=== PATIENT | female | born 1985 | race American Indian/Alaskan Native ===

== ENCOUNTER 2017-04-10 09:40 | Emergency (ER) | payer BC ==
[2017-04-10 11:53] VITALS: BP 152/83
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
== END 2017-04-10 12:10 | disposition home or self-care (01) ==
LOC: VM.ED 09:40
DX: M25.511 Pain in right shoulder (principal); E11.9 Type 2 diabetes mellitus without complications; I10 Essential (primary) hypertension; Z90.49 Acquired absence of other specified parts of digestive tract; Z90.710 Acquired absence of both cervix and uterus; Z98.890 Other specified postprocedural states; Z79.84 Long term (current) use of oral hypoglycemic drugs; Z79.899 Other long term (current) drug therapy; Z88.5 Allergy status to narcotic agent; Z91.018 Allergy to other foods
CPT/HCPCS: 71020; 80305; 80349; 99285

== ENCOUNTER 2020-02-14 22:36 | Emergency (ER) | payer BC, OTHER ==
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
--- NOTE | 2020-02-15 07:37 | CT ---
[id number] CT/CT Head WO IV EXAM: NONCONTRAST HEAD CT INDICATION: Loss of consciousness. COMPARISON: December 28, 2016. DISCUSSION: Right posterior scalp hematoma. The ventricles and sulci are normal in size and configuration. The barber and white matter are normal in attenuation. No mass effect or midline shift. No acute hemorrhage or extra-axial fluid collection. No acute territorial infarct is identified. A limited look at the orbits and paranasal sinuses is unremarkable. IMPRESSION: 1. No evidence of acute intracranial trauma. 2. Right posterior scalp hematoma. Estrada Perry MD 02/15/20 0736 Thank you for allowing us to participate in the care of your patient.
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
== END 2020-02-15 00:12 | disposition home or self-care (01) ==
LOC: VM.ED 22:36
DX: S06.9X9A Unspecified intracranial injury with loss of consciousness of unspecified duration, initial encounter (principal); S00.03XA Contusion of scalp, initial encounter; M54.2 Cervicalgia; Z88.5 Allergy status to narcotic agent; Z91.018 Allergy to other foods; Z79.899 Other long term (current) drug therapy; W19.XXXA Unspecified fall, initial encounter; W22.8XXA Striking against or struck by other objects, initial encounter
CPT/HCPCS: 70450; 72125; 99284-25; 99284-GF

== ENCOUNTER 2020-04-09 10:03 | Emergency (ER) | payer OTHER ==
--- NOTE | 2020-04-09 10:21 | EDM.PDOC ---
ED HPI GENERAL MEDICAL PROBLEM - General Chief Complaint: Genitourinary Problem Stated Complaint: dysuria Time Seen by Provider: 04/09/20 10:10 Source of Information: Reports: Patient History Limitations: Reports: No Limitations - History of Present Illness INITIAL COMMENTS - FREE TEXT/NARRATIVE: Patient presents to ER with complaints of burning with urination, suprapubic cramping and perineal discomfort. States has persistent low abdominal cramping but is much more intense before and after she voids. Does have noted hematuria. No fevers. No nausea or vomiting with this. No back pain. She states it feels like her "bottom is swollen a little when I wipe". Mild itching to the labia. Has had bladder infections in the past but "nothing this intense" Onset: Gradual Duration: Day(s): Location: Reports: Abdomen Quality: Reports: Ache, Burning Severity: Moderate Associated Symptoms: Reports: Malaise. Denies: Confusion, Chest Pain, Cough, Fever/Chills, Loss of Appetite, Nausea/Vomiting, Shortness of Breath Perineal Area Pain Score (Numeric/FACES): 8 - Related Data Allergies Allergy/AdvReac Type Severity Reaction Status Date / Time codeine Allergy Rash Verified 04/09/20 10:26 blueberries Allergy Itching Uncoded 02/14/20 22:39 Home Meds: Home Meds Lisinopril 40 mg PO DAILY 04/10/17 [History] atorvaSTATin [Lipitor] 10 mg PO BEDTIME 04/09/20 [History] glyBURIDE/Metformin HCl [Glyburid-Metformin 1.25-250 mg] 1 each PO DAILY 04/09/20 [History] Past Medical History Psychiatric History: Reports: Anxiety, Depression - Past Surgical History HEENT Surgical History: Reports: Adenoidectomy, Tonsillectomy GI Surgical History: Reports: Cholecystectomy Female Surgical History: Reports: Hysterectomy Social & Family History - Tobacco Use Smoking Status *Q: Current Status Unknown ED ROS GENERAL - Review of Systems Review Of Systems: See Below Constitutional: Reports: Malaise. Denies: Fever, Chills, Weakness, Fatigue, Decreased Appetite HEENT: Reports: No Symptoms Respiratory: Denies: Shortness of Breath, Cough Cardiovascular: Denies: Chest Pain, Edema, Lightheadedness Endocrine: Denies: Fatigue GI/Abdominal: Reports: Abdominal Pain. Denies: Nausea, Vomiting : Reports: Dysuria, Frequency, Hematuria, Urgency. Denies: Flank Pain Musculoskeletal: Reports: No Symptoms Skin: Reports: No Symptoms Neurological: Reports: No Symptoms ED EXAM, RENAL/ - Physical Exam Exam: See Below Exam Limited By: No Limitations General Appearance: Alert, WD/WN, No Apparent Distress Head: Normocephalic Neck: Normal Inspection, Supple, Non-Tender Respiratory/Chest: No Respiratory Distress, Lungs Clear, Normal Breath Sounds Cardiovascular: Regular Rate, Rhythm GI/Abdominal: Normal Bowel Sounds, Soft, Tender (lower quadrants with palpation) Back Exam: No: CVA Tenderness (L), CVA Tenderness (R) Extremities: Normal Inspection, No Pedal Edema Neurological: Alert, Oriented Psychiatric: Tearful Skin Exam: Warm, Dry Course - Vital Signs Last Recorded V/S: Last Vital Signs Temp 97.9 F 04/09/20 10:10 Pulse 97 04/09/20 10:10 Resp 16 04/09/20 10:10 BP 143/104 H 04/09/20 10:10 Pulse Ox 98 04/09/20 10:10 - Orders/Labs/Meds Orders: Active Orders 24 hr Category Date Time Status CULTURE HERPES SIMPLEX VIRUS [MREF] Stat Lab 04/09/20 10:44 Ordered valACYclovir [Valtrex] Med 04/09/20 10:45 Ordered 1,000 mg PO BID Medication Orders Valacyclovir HCl (Valtrex) 1,000 mg PO BID TALA Labs: Laboratory Tests 04/09/20 Range/Units 10:20 Urine Color Light yellow (YELLOW) Urine Appearance Slightly cloudy H (CLEAR) Urine pH 5.5 (5.0-8.0) Ur Specific [place] 1.020 Urine Protein 30 H (NEGATIVE) mg/dL Urine Glucose (UA) >=1000 H (NEGATIVE) mg/dL Urine Ketones Trace H (NEGATIVE) mg/dL Urine Occult Blood Negative (NEGATIVE) Urine Nitrite Negative (NEGATIVE) Urine Bilirubin Negative (NEGATIVE) Urine Urobilinogen 0.2 (0.2) EU/dL Ur Leukocyte Esterase Negative (NEGATIVE) Urine RBC 0-5 (NOT SEEN) /HPF Urine WBC 0-5 (NOT SEEN) /HPF Ur Squamous Epith Cells Few H (NEGATIVE) /HPF Urine Bacteria Not seen (NEGATIVE) /HPF Urine Mucus Not seen (NEGATIVE) /LPF Meds: Medications Generic Name Dose Route Start Last Admin Trade Name Keira PRN Reason Stop Dose Admin Valacyclovir HCl 1,000 mg 04/09/20 10:45 Valtrex PO BID TALA - Re-Assessments/Exams Free Text/Narrative Re-Assessment/Exam: 04/09/20 10:45 UA is negative. Further pelvic exam done. Has multiple fleshy colored lesions to the labia bilaterally. Area to the crease near her clitoris has 3 open sores, very tender. Herpes culture collected. Much discussion held with patient in regards to this. Will proceed with treatment with Valtrex due to the discomfort she is having and suspicion of this until culture report is received. Will also give a Diflucan due to vaginal itching. Departure - Departure Time of Disposition: 10:50 Disposition: Home, Self-Care 01 Condition: Fair Clinical Impression: Candidiasis of female genitalia Herpes genitalia Qualifiers: Herpes simplex infection site: vulvovaginitis Qualified Code(s): A60.04 - Herpesviral vulvovaginitis - Discharge Information *PRESCRIPTION DRUG MONITORING PROGRAM REVIEWED*: No *COPY OF PRESCRIPTION DRUG MONITORING REPORT IN PATIENT CADEN: No Referrals: Shagufta Romero MD [Primary Care Provider] - Forms: ED Department Discharge Additional Instructions: 1. Keep perineum clean and dry. Try to avoid scratching to prevent further irritation 2. Start Valtrex one gram BID for 7 days 3. You will be notified of results of culture once received 4. If pain persists despite current treatment, follow up with Dr. Romero Sepsis Event Note (ED) - Focused Exam Vital Signs: Vital Signs Temp Pulse Resp BP Pulse Ox 04/09/20 10:10 97.9 F 97 16 143/104 H 98 - My Orders Last 24 Hours: My Active Orders 04/09/20 10:44 CULTURE HERPES SIMPLEX VIRUS [MREF] Stat 04/09/20 10:45 valACYclovir [Valtrex] 1,000 mg PO BID - Assessment/Plan Last 24 Hours: My Active Orders 04/09/20 10:44 CULTURE HERPES SIMPLEX VIRUS [MREF] Stat 04/09/20 10:45 valACYclovir [Valtrex] 1,000 mg PO BID
[2020-04-09 10:27] VITALS: BP 143/104; PULSE 97
[2020-04-09] MEDS ORDERED: valACYclovir 1,000 MG Tab PO SCH (10:45)
[2020-04-09] MEDS ORDERED: Fluconazole 100 MG Tab PO ONE (10:47)
== END 2020-04-09 11:10 | disposition home or self-care (01) ==
LOC: VM.ED 10:03
DX: B37.3 Candidiasis of vulva and vagina (principal); A60.04 Herpesviral vulvovaginitis; Z88.5 Allergy status to narcotic agent; Z91.018 Allergy to other foods; Z79.899 Other long term (current) drug therapy
CPT/HCPCS: 81001; 87529; 99283; 99284; A9270

== ENCOUNTER 2020-05-04 21:29 | Emergency (ER) | payer OTHER ==
[2020-05-04] MEDS ORDERED: Lidocaine 1% 30 ML SDV INJECT ONE (22:11)
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
[2020-05-04] MEDS ORDERED: Ibuprofen 200 MG Tab PO STA (23:17)
[2020-05-05 06:30] VITALS: BP 164/92; PULSE 100
--- NOTE | 2020-05-05 10:41 | CT ---
[id number] CT/CT Facial Bones WO IV Exam: CT Facial Bones WO IV Indication:ASSAULT FACE, LEFT ORBIT INJURY. Comparison: No prior imaging for comparison. Discussion: Mild amount of soft tissue edema/contusion in the left periorbital region. No underlying acute facial bone fracture. Tiny air-fluid levels in the maxillary sinuses, suggesting underlying changes of mild paranasal sinusitis. Paranasal sinuses are otherwise clear. Impression: Left periorbital soft tissue contusion. No underlying fracture. Ariel Rudolph MD 05/05/20 1040 Thank you for allowing us to participate in the care of your patient.
== END 2020-05-04 23:30 | disposition home or self-care (01) ==
LOC: VM.ED 21:29
DX: S01.81XA Laceration without foreign body of other part of head, initial encounter (principal); E78.00 Pure hypercholesterolemia, unspecified; I10 Essential (primary) hypertension; E11.9 Type 2 diabetes mellitus without complications; Z79.84 Long term (current) use of oral hypoglycemic drugs; Z79.899 Other long term (current) drug therapy; Z88.5 Allergy status to narcotic agent; Z91.018 Allergy to other foods; Y04.0XXA Assault by unarmed brawl or fight, initial encounter
CPT/HCPCS: 70486; 99284; 99284-25; A9270-GY

== ENCOUNTER 2020-06-27 13:43 | Emergency (ER) | payer OTHER ==
[2020-06-27] MEDS ORDERED: predniSONE 20 MG Tab PO ONE (14:29)
[2020-06-27] MEDS ORDERED: Albuterol/Ipratropium 3.0-0.5 MG/3 ML Neb Soln NEB ONE (14:29)
--- NOTE | 2020-06-27 14:54 | EDM.PDOC ---
ED HPI GENERAL MEDICAL PROBLEM - General Stated Complaint: sob Time Seen by Provider: 06/27/20 13:50 Source of Information: Reports: Patient History Limitations: Reports: No Limitations - History of Present Illness INITIAL COMMENTS - FREE TEXT/NARRATIVE: Patient comes emergency today from home with complaints of shortness of breath and cough. Over the past 3 to 4 days the patient has had a dry hacking nonproductive cough. She has had no fever or chills. No loss of taste or smell. No abdominal pain nausea or vomiting. No diarrhea. She has no pain in her chest. No weakness dizziness lightheadedness. No syncope. No palpitations. She is also had sinus congestion pressure and drainage. An itchy scratchy dry throat. No COVID exposure no COVID symptoms. - Related Data Allergies Allergy/AdvReac Type Severity Reaction Status Date / Time codeine Allergy Rash Verified 06/27/20 14:24 blueberries Allergy Itching Uncoded 06/27/20 14:24 Home Meds: Home Meds Lisinopril 40 mg PO DAILY 04/10/17 [History] atorvaSTATin [Lipitor] 10 mg PO BEDTIME 04/09/20 [History] glyBURIDE/Metformin HCl [Glyburid-Metformin 1.25-250 mg] 1 each PO DAILY 04/09/20 [History] Albuterol [Ventolin HFA] 2 puff INH Q4H PRN #1 puff 06/27/20 [Rx] predniSONE 40 mg PO DAILY #8 tab 06/27/20 [Rx] Past Medical History Cardiovascular History: Reports: High Cholesterol, Hypertension Psychiatric History: Reports: Anxiety, Depression Endocrine/Metabolic History: Reports: Diabetes, Type II - Past Surgical History HEENT Surgical History: Reports: Adenoidectomy, Tonsillectomy GI Surgical History: Reports: Cholecystectomy Female Surgical History: Reports: Hysterectomy ED ROS GENERAL - Review of Systems Review Of Systems: Comprehensive ROS is negative, except as noted in HPI. ED EXAM, GENERAL - Physical Exam Exam: See Below Exam Limited By: No Limitations General Appearance: Alert, WD/WN, No Apparent Distress (The patient is able to speak in full sentences and is clearly in no distress.) Eye Exam: Bilateral Eye: EOMI, PERRL Ears: Normal External Exam, Normal Canal, Hearing Grossly Normal, Normal TMs Nose: Normal Inspection, Normal Mucosa Throat/Mouth: Normal Inspection, Normal Lips, Normal Teeth, Normal Gums, Normal Oropharynx, Normal Voice, No Airway Compromise Head: Atraumatic, Normocephalic Neck: Normal Inspection, Supple, Non-Tender Respiratory/Chest: No Respiratory Distress, Lungs Clear, Normal Breath Sounds, No Accessory Muscle Use, Chest Non-Tender Cardiovascular: Normal Peripheral Pulses, Regular Rate, Rhythm GI/Abdominal: Normal Bowel Sounds, Soft, Non-Tender (Female) Exam: Deferred Rectal (Female) Exam: Deferred Back Exam: Normal Inspection, Full Range of Motion Extremities: Normal Inspection, Normal Range of Motion, No Pedal Edema, Normal Capillary Refill Neurological: Alert, Oriented, Normal Cognition, No Motor/Sensory Deficits Psychiatric: Normal Affect, Normal Mood Skin Exam: Warm, Dry, Intact, Normal Color, No Rash Course - Orders/Labs/Meds Orders: Active Orders 24 hr Category Date Time Status RT Aerosol Therapy [RC] ASDIRECTED Care 06/27/20 14:29 Active Labs: Laboratory Tests 06/27/20 Range/Units 14:02 SARS CoV-2 RNA Rapid JEAN-PAUL Negative (NEGATIVE) Meds: Medications Discontinued Medications Generic Name Dose Route Start Last Admin Trade Name Freq PRN Reason Stop Dose Admin Albuterol/Ipratropium 3 ml 06/27/20 14:29 06/27/20 14:34 Duoneb 3.0-0.5 Mg/3 Ml NEB 06/27/20 14:30 3 ml ONETIME ONE Administration Prednisone 40 mg 06/27/20 14:29 06/27/20 14:34 Prednisone PO 06/27/20 14:30 40 mg ONETIME ONE Administration - Re-Assessments/Exams Free Text/Narrative Re-Assessment/Exam: 06/27/20 15:09 PRednisone 40mg po Duo-neb nebulizer with resolution of symptoms and complaints of cough and SOB> CXR per radiology Negative examination of the chest. I reviewed the negative chest x-ray with the patient. Her COVID test is negative as well. We will send her home with albuterol MDI inhaler as well as prednisone for the treatment of bronchitis. Discharge directions as below are explained to the patient she was comfortable with this plan and her questions are answered. Departure - Departure Time of Disposition: 14:52 Disposition: Home, Self-Care 01 Clinical Impression: Bronchitis - Discharge Information Prescriptions: predniSONE 40 mg PO DAILY #8 tab Albuterol [Ventolin HFA] 2 puff INH Q4H PRN #1 puff PRN Reason: Shortness Of Breath Instructions: Upper Respiratory Infection, Adult, [id number] Additional Instructions: Increase fluids over the next few days. Take it easy and rest. Prednisone 40mg a day for the next 4 days. First dose given in the ED and RX sent to Albuterol inhaler with a spacer, 2 puffs every 4 hrs as needed for cough SOB. RX sent to the pharmacy. Return to the ED if new or worsening symptoms. Follow up with in the clinic in the next 4-6 days if not improving sooner if worse. - My Orders Last 24 Hours: My Active Orders 06/27/20 14:29 RT Aerosol Therapy [RC] ASDIRECTED - Assessment/Plan Last 24 Hours: My Active Orders 06/27/20 14:29 RT Aerosol Therapy [RC] ASDIRECTED
--- NOTE | 2020-06-27 15:01 | CR ---
[id number] RAD/RAD Chest PA And Lateral EXAM: RAD Chest PA And Lateral INDICATION: COUGH, SHORTNESS OF BREATH. COMPARISON: March 2017. DISCUSSION: Cardiomediastinal silhouette is normal in size and contour. Lungs are clear. No pleural effusion or pneumothorax. IMPRESSION: Negative examination of the chest. Ariel Rudolph MD 06/27/20 1186 Thank you for allowing us to participate in the care of your patient.
[2020-06-28 08:59] VITALS: BP 142/56; PULSE 98
== END 2020-06-27 15:17 | disposition home or self-care (01) ==
LOC: VM.ED 13:43
DX: J40 Bronchitis, not specified as acute or chronic (principal); I10 Essential (primary) hypertension; E78.00 Pure hypercholesterolemia, unspecified; E11.9 Type 2 diabetes mellitus without complications; F41.9 Anxiety disorder, unspecified; F32.9 Major depressive disorder, single episode, unspecified; Z90.49 Acquired absence of other specified parts of digestive tract; Z79.84 Long term (current) use of oral hypoglycemic drugs; Z90.710 Acquired absence of both cervix and uterus; Z20.828 Contact with and (suspected) exposure to other viral communicable diseases; Z88.5 Allergy status to narcotic agent; Z91.018 Allergy to other foods; Z79.899 Other long term (current) drug therapy
CPT/HCPCS: 71046; 94640; 99284; 99285-25; J7512; J7620-GY; U0002

== ENCOUNTER 2020-08-10 10:43 | Observation (INO) | payer OTHER ==
[2020-08-10] MEDS ORDERED: Ondansetron 4 MG/2 ML SDV IVPUSH ONE (10:53)
[2020-08-10] MEDS ORDERED: Albuterol/Ipratropium 3.0-0.5 MG/3 ML Neb Soln NEB ONE ×2 (10:53→10:54)
--- NOTE | 2020-08-10 11:04 | EDM.PDOC ---
ED HPI GENERAL MEDICAL PROBLEM - General Stated Complaint: SOB Time Seen by Provider: 08/10/20 10:51 Source of Information: Reports: Patient, EMS - History of Present Illness INITIAL COMMENTS - FREE TEXT/NARRATIVE: Sadia is a 35 y/o female who is brought to the ER by EMS for SOB. She called 911 today and was very SOB and could hardly speak. She reports that she was tested for COVID 2 days ago and has been home on quarantine. This AM she got extremely SOB and started to have nausea and vomiting. She has been trying to drink fluids, but hasn't had much of an appetite. She reprots her blood sugar this AM was 302. She has not been taking her meds the last few days since she has been ill. Generalized Pain Score (Numeric/FACES): 7 Headache Pain Score (Numeric/FACES): 7 - Related Data Allergies Allergy/AdvReac Type Severity Reaction Status Date / Time codeine Allergy Rash Verified 06/27/20 14:24 blueberries Allergy Itching Uncoded 06/27/20 14:24 Home Meds: Home Meds Lisinopril 40 mg PO DAILY 04/10/17 [History] atorvaSTATin [Lipitor] 10 mg PO BEDTIME 04/09/20 [History] glyBURIDE/Metformin HCl [Glyburid-Metformin 1.25-250 mg] 1 each PO DAILY 04/09/20 [History] Albuterol [Ventolin HFA] 2 puff INH Q4H PRN #1 puff 06/27/20 [Rx] Ibuprofen 600 mg PO Q6H PRN 08/10/20 [History] Past Medical History Cardiovascular History: Reports: High Cholesterol, Hypertension Psychiatric History: Reports: Anxiety, Depression Endocrine/Metabolic History: Reports: Diabetes, Type II - Past Surgical History HEENT Surgical History: Reports: Adenoidectomy, Tonsillectomy GI Surgical History: Reports: Cholecystectomy Female Surgical History: Reports: Hysterectomy Review of Systems - Review of Systems Review Of Systems: See Below Constitutional: Reports: No Symptoms Eyes: Reports: No Symptoms Ears: Reports: No Symptoms Nose: Reports: No Symptoms Mouth/Throat: Reports: No Symptoms Respiratory: Reports: Shortness of Breath, Wheezing, Cough Cardiovascular: Reports: Chest Pain GI/Abdominal: Reports: Decreased Appetite Genitourinary: Reports: No Symptoms Musculoskeletal: Reports: No Symptoms Skin: Reports: No Symptoms Neurological: Reports: No Symptoms Psychiatric: Reports: No Symptoms ED EXAM, GENERAL - Physical Exam Exam: See Below General Appearance: Alert, WD/WN (Adult female, trying to catch her breath and coughing profusely, quite anxious.) Eye Exam: Bilateral Eye: PERRL Ears: Normal Canal, Hearing Grossly Normal Nose: Normal Inspection, Normal Mucosa Throat/Mouth: Normal Teeth, No Airway Compromise Head: Atraumatic Neck: Normal Inspection, Supple Respiratory/Chest: Respiratory Distress, Other (Occasional wheezing, scattered coarseness) Cardiovascular: Normal Peripheral Pulses, Regular Rate, Rhythm GI/Abdominal: Normal Bowel Sounds, Soft, Non-Tender (Female) Exam: Deferred Rectal (Female) Exam: Deferred Back Exam: Normal Inspection Extremities: Normal Inspection, Normal Range of Motion, Normal Capillary Refill Neurological: Alert, Oriented, CN II-XII Intact Psychiatric: Normal Affect, Normal Mood Skin Exam: Warm, Dry, Intact, Normal Color Lymphatic: No Adenopathy #1 Interpretation EKG Date: 08/10/20 Time: 10:56 Rhythm: Other (Sinus Tachycardia) Rate (Beats/Min): 125 [place]: Normal P-Wave: Present QRS: Normal ST-T: Normal QT: Normal Comparison: NA - No Prior EKG Course - Vital Signs Text/Narrative:: 1051 The patient was seen on arrival to the ER. She was quite dyspneic. She was placed on 2 liters of oxygen and sats were in the mid 90s. Labs, EKG, and CXR ordered. She was given Dexamethasone 8mg IVP and a Duoneb. 1140 Breathing improved after the neb and steroids, however she was still tachycardic and her respiratory rate in the 30s. Sat remained >95% on 2 liters of oxygen per NC. Lorazepam 1mg IVP ordered to help patient relax. 1210 Patient resting now. Sats >95%, oxygen turned off. Still tachycardic. and slightly SOB. 1235 Maintaining her sats in the mid 90s on room air. Lactic Acid=2.5. CXR noted opacification of both lungs. Ceftriaxone 1gm IVP ordered since lactic acid elevated and pt hx of T2DM. Will plan to admit her to observation for serial lactic acid and scheduled nebs. Patient in agreement. Does have history of anxiety, which was exacerbated by coughing and SOB. Patient doing better than on arrival, but still want her watched closely. See admission orders. Last Recorded V/S: Last Vital Signs Temp 36.5 C 08/10/20 10:35 Pulse 113 H 08/10/20 12:03 Resp 32 H 08/10/20 12:03 BP 142/88 H 08/10/20 12:03 Pulse Ox 97 08/10/20 12:03 - Orders/Labs/Meds Orders: Active Orders 24 hr Category Date Time Status Patient Status [ADT] Routine ADT 08/10/20 13:16 Ordered EKG Documentation Completion [RC] STAT Care 08/10/20 10:52 Active CULTURE BLOOD [BC] Stat Lab 08/10/20 11:21 Results CULTURE BLOOD [BC] Stat Lab 08/10/20 11:26 Received Sodium Chloride 0.9% [Saline Flush] Med 08/10/20 10:52 Active 10 ml FLUSH ASDIRECTED PRN Blood Culture x2 Reflex Set [OM.PC] Stat Oth 08/10/20 10:53 Ordered Saline Lock Insert [OM.PC] Stat Oth 08/10/20 10:52 Ordered Medication Orders Sodium Chloride (Saline Flush) 10 ml FLUSH ASDIRECTED PRN PRN Reason: Keep Vein Open Labs: Laboratory Tests 08/10/20 08/10/20 08/10/20 Range/Units 10:55 11:21 11:21 WBC 9.7 (4.0-10.0) x10^3/uL RBC 5.74 H (4.00-5.50) x10^6/uL Hgb 15.9 (12.0-16.0) g/dL Hct 46.2 (33.0-47.0) % MCV 80.5 (78.0-93.0) fL MCH 27.7 (26.0-32.0) pg MCHC 34.4 (32.0-36.0) g/dL RDW Coeff of [place] 13.7 (10.0-15.0) % Plt Count 186 (130-400) x10^3/uL Add Manual Diff Yes Neutrophils % (Manual) 43 L (50-80) % Band Neutrophils % 4 (0-6) % Lymphocytes % (Manual) 15 L (25-50) % Reactive Lymphs % 28 H (0) % Monocytes % (Manual) 9 (2-11) % Eosinophils % (Manual) 1 (0-4) % Platelet Estimate Adequate PT 9.6 (9.5-12.3) SEC INR 0.9 L (2.0-3.5) D-Dimer, Quantitative (<=0.58) mg/LFEU Sodium (136-145) mmol/L Potassium (3.5-5.1) mmol/L Chloride (98-107) mmol/L Carbon Dioxide (21-32) mmol/L Anion Gap (10-20) mmol/L BUN (7-18) mg/dL Creatinine (0.55-1.02) mg/dL Est Cr Clr Drug Dosing mL/min Estimated GFR (MDRD) Glucose (74-106) mg/dL Lactic Acid (0.4-2.0) mmol/L Calcium (8.5-10.1) mg/dL Corrected Calcium (8.5-10.1) mg/dL Ferritin (8-252) ng/mL Total Bilirubin (0.2-1.0) mg/dL AST (15-37) U/L ALT (14-59) U/L Alkaline Phosphatase (46-116) U/L Troponin I (<=0.056) ng/mL Total Protein (6.4-8.2) g/dL Albumin (3.4-5.0) g/dL Globulin Albumin/Globulin Ratio Urine Color (YELLOW) Urine Appearance (CLEAR) Urine pH (5.0-8.0) Ur Specific [place] Urine Protein (NEGATIVE) mg/dL Urine Glucose (UA) (NEGATIVE) mg/dL Urine Ketones (NEGATIVE) mg/dL Urine Occult Blood (NEGATIVE) Urine Nitrite (NEGATIVE) Urine Bilirubin (NEGATIVE) Urine Urobilinogen (0.2) EU/dL Ur Leukocyte Esterase (NEGATIVE) U Hyaline Cast (Auto) Urine RBC (NOT SEEN) /HPF Urine WBC (NOT SEEN) /HPF Ur Squamous Epith Cells (NEGATIVE) /HPF Urine Bacteria (NEGATIVE) /HPF Urine Mucus (NEGATIVE) /LPF Urine Opiates Screen (NEGATIVE) Ur Buprenorphine Scrn (NEGATIVE) Ur Oxycodone Screen (NEGATIVE) Ur EDDP (Meth Metab) (NEGATIVE) Urine Methadone Screen (NEGATIVE) Ur Barbituates Screen (NEGATIVE) Ur Tricyclics Screen (NEGATIVE) Ur Phencyclidine Scrn (NEGATIVE) Ur Amphetamines Screen (NEGATIVE) U Methamphetamines Scrn (NEGATIVE) Urine MDMA Screen (NEGATIVE) U Benzodiazepines Scrn (NEGATIVE) Urine Cocaine Screen (NEGATIVE) U Marijuana (THC) Screen (NEGATIVE) Ethyl Alcohol (0-3) mg/dL SARS CoV-2 RNA Rapid JEAN-PAUL Positive H (NEGATIVE) 08/10/20 08/10/20 08/10/20 Range/Units 11:21 11:21 11:21 WBC (4.0-10.0) x10^3/uL RBC (4.00-5.50) x10^6/uL Hgb (12.0-16.0) g/dL Hct (33.0-47.0) % MCV (78.0-93.0) fL MCH (26.0-32.0) pg MCHC (32.0-36.0) g/dL RDW Coeff of [place] (10.0-15.0) % Plt Count (130-400) x10^3/uL Add Manual Diff Neutrophils % (Manual) (50-80) % Band Neutrophils % (0-6) % Lymphocytes % (Manual) (25-50) % Reactive Lymphs % (0) % Monocytes % (Manual) (2-11) % Eosinophils % (Manual) (0-4) % Platelet Estimate PT (9.5-12.3) SEC INR (2.0-3.5) D-Dimer, Quantitative 0.54 (<=0.58) mg/LFEU Sodium 135 L (136-145) mmol/L Potassium 3.5 (3.5-5.1) mmol/L Chloride 99 (98-107) mmol/L Carbon Dioxide 19 L (21-32) mmol/L Anion Gap 20.5 H (10-20) mmol/L BUN 12 (7-18) mg/dL Creatinine 0.8 (0.55-1.02) mg/dL Est Cr Clr Drug Dosing 98.07 mL/min Estimated GFR (MDRD) > 60 Glucose 326 H (74-106) mg/dL Lactic Acid 2.5 H* (0.4-2.0) mmol/L Calcium 8.4 L (8.5-10.1) mg/dL Corrected Calcium 8.80 (8.5-10.1) mg/dL Ferritin (8-252) ng/mL Total Bilirubin 1.1 H (0.2-1.0) mg/dL AST 17 (15-37) U/L ALT 24 (14-59) U/L Alkaline Phosphatase 89 (46-116) U/L Troponin I < 0.017 (<=0.056) ng/mL Total Protein 8.1 (6.4-8.2) g/dL Albumin 3.5 (3.4-5.0) g/dL Globulin 4.6 Albumin/Globulin Ratio 0.76 Urine Color (YELLOW) Urine Appearance (CLEAR) Urine pH (5.0-8.0) Ur Specific [place] Urine Protein (NEGATIVE) mg/dL Urine Glucose (UA) (NEGATIVE) mg/dL Urine Ketones (NEGATIVE) mg/dL Urine Occult Blood (NEGATIVE) Urine Nitrite (NEGATIVE) Urine Bilirubin (NEGATIVE) Urine Urobilinogen (0.2) EU/dL Ur Leukocyte Esterase (NEGATIVE) U Hyaline Cast (Auto) Urine RBC (NOT SEEN) /HPF Urine WBC (NOT SEEN) /HPF Ur Squamous Epith Cells (NEGATIVE) /HPF Urine Bacteria (NEGATIVE) /HPF Urine Mucus (NEGATIVE) /LPF Urine Opiates Screen (NEGATIVE) Ur Buprenorphine Scrn (NEGATIVE) Ur Oxycodone Screen (NEGATIVE) Ur EDDP (Meth Metab) (NEGATIVE) Urine Methadone Screen (NEGATIVE) Ur Barbituates Screen (NEGATIVE) Ur Tricyclics Screen (NEGATIVE) Ur Phencyclidine Scrn (NEGATIVE) Ur Amphetamines Screen (NEGATIVE) U Methamphetamines Scrn (NEGATIVE) Urine MDMA Screen (NEGATIVE) U Benzodiazepines Scrn (NEGATIVE) Urine Cocaine Screen (NEGATIVE) U Marijuana (THC) Screen (NEGATIVE) Ethyl Alcohol (0-3) mg/dL SARS CoV-2 RNA Rapid JEAN-PAUL (NEGATIVE) 08/10/20 08/10/20 08/10/20 Range/Units 11:21 11:21 11:38 WBC (4.0-10.0) x10^3/uL RBC (4.00-5.50) x10^6/uL Hgb (12.0-16.0) g/dL Hct (33.0-47.0) % MCV (78.0-93.0) fL MCH (26.0-32.0) pg MCHC (32.0-36.0) g/dL RDW Coeff of [place] (10.0-15.0) % Plt Count (130-400) x10^3/uL Add Manual Diff Neutrophils % (Manual) (50-80) % Band Neutrophils % (0-6) % Lymphocytes % (Manual) (25-50) % Reactive Lymphs % (0) % Monocytes % (Manual) (2-11) % Eosinophils % (Manual) (0-4) % Platelet Estimate PT (9.5-12.3) SEC INR (2.0-3.5) D-Dimer, Quantitative (<=0.58) mg/LFEU Sodium (136-145) mmol/L Potassium (3.5-5.1) mmol/L Chloride (98-107) mmol/L Carbon Dioxide (21-32) mmol/L Anion Gap (10-20) mmol/L BUN (7-18) mg/dL Creatinine (0.55-1.02) mg/dL Est Cr Clr Drug Dosing mL/min Estimated GFR (MDRD) Glucose (74-106) mg/dL Lactic Acid (0.4-2.0) mmol/L Calcium (8.5-10.1) mg/dL Corrected Calcium (8.5-10.1) mg/dL Ferritin 284 H (8-252) ng/mL Total Bilirubin (0.2-1.0) mg/dL AST (15-37) U/L ALT (14-59) U/L Alkaline Phosphatase (46-116) U/L Troponin I (<=0.056) ng/mL Total Protein (6.4-8.2) g/dL Albumin (3.4-5.0) g/dL Globulin Albumin/Globulin Ratio Urine Color Dark yellow H (YELLOW) Urine Appearance Slightly cloudy H (CLEAR) Urine pH 5.5 (5.0-8.0) Ur Specific [place] >=1.030 Urine Protein >=300 H (NEGATIVE) mg/dL Urine Glucose (UA) 500 H (NEGATIVE) mg/dL Urine Ketones 80 H (NEGATIVE) mg/dL Urine Occult Blood Trace-lysed H (NEGATIVE) Urine Nitrite Negative (NEGATIVE) Urine Bilirubin Small H (NEGATIVE) Urine Urobilinogen 0.2 (0.2) EU/dL Ur Leukocyte Esterase Negative (NEGATIVE) U Hyaline Cast (Auto) Moderate Urine RBC 5-10 H (NOT SEEN) /HPF Urine WBC 0-5 (NOT SEEN) /HPF Ur Squamous Epith Cells Moderate H (NEGATIVE) /HPF Urine Bacteria Not seen (NEGATIVE) /HPF Urine Mucus Not seen (NEGATIVE) /LPF Urine Opiates Screen (NEGATIVE) Ur Buprenorphine Scrn (NEGATIVE) Ur Oxycodone Screen (NEGATIVE) Ur EDDP (Meth Metab) (NEGATIVE) Urine Methadone Screen (NEGATIVE) Ur Barbituates Screen (NEGATIVE) Ur Tricyclics Screen (NEGATIVE) Ur Phencyclidine Scrn (NEGATIVE) Ur Amphetamines Screen (NEGATIVE) U Methamphetamines Scrn (NEGATIVE) Urine MDMA Screen (NEGATIVE) U Benzodiazepines Scrn (NEGATIVE) Urine Cocaine Screen (NEGATIVE) U Marijuana (THC) Screen (NEGATIVE) Ethyl Alcohol < 3 (0-3) mg/dL SARS CoV-2 RNA Rapid JEAN-PAUL (NEGATIVE) 08/10/20 Range/Units 11:38 WBC (4.0-10.0) x10^3/uL RBC (4.00-5.50) x10^6/uL Hgb (12.0-16.0) g/dL Hct (33.0-47.0) % MCV (78.0-93.0) fL MCH (26.0-32.0) pg MCHC (32.0-36.0) g/dL RDW Coeff of [place] (10.0-15.0) % Plt Count (130-400) x10^3/uL Add Manual Diff Neutrophils % (Manual) (50-80) % Band Neutrophils % (0-6) % Lymphocytes % (Manual) (25-50) % Reactive Lymphs % (0) % Monocytes % (Manual) (2-11) % Eosinophils % (Manual) (0-4) % Platelet Estimate PT (9.5-12.3) SEC INR (2.0-3.5) D-Dimer, Quantitative (<=0.58) mg/LFEU Sodium (136-145) mmol/L Potassium (3.5-5.1) mmol/L Chloride (98-107) mmol/L Carbon Dioxide (21-32) mmol/L Anion Gap (10-20) mmol/L BUN (7-18) mg/dL Creatinine (0.55-1.02) mg/dL Est Cr Clr Drug Dosing mL/min Estimated GFR (MDRD) Glucose (74-106) mg/dL Lactic Acid (0.4-2.0) mmol/L Calcium (8.5-10.1) mg/dL Corrected Calcium (8.5-10.1) mg/dL Ferritin (8-252) ng/mL Total Bilirubin (0.2-1.0) mg/dL AST (15-37) U/L ALT (14-59) U/L Alkaline Phosphatase (46-116) U/L Troponin I (<=0.056) ng/mL Total Protein (6.4-8.2) g/dL Albumin (3.4-5.0) g/dL Globulin Albumin/Globulin Ratio Urine Color (YELLOW) Urine Appearance (CLEAR) Urine pH (5.0-8.0) Ur Specific [place] Urine Protein (NEGATIVE) mg/dL Urine Glucose (UA) (NEGATIVE) mg/dL Urine Ketones (NEGATIVE) mg/dL Urine Occult Blood (NEGATIVE) Urine Nitrite (NEGATIVE) Urine Bilirubin (NEGATIVE) Urine Urobilinogen (0.2) EU/dL Ur Leukocyte Esterase (NEGATIVE) U Hyaline Cast (Auto) Urine RBC (NOT SEEN) /HPF Urine WBC (NOT SEEN) /HPF Ur Squamous Epith Cells (NEGATIVE) /HPF Urine Bacteria (NEGATIVE) /HPF Urine Mucus (NEGATIVE) /LPF Urine Opiates Screen Negative (NEGATIVE) Ur Buprenorphine Scrn Negative (NEGATIVE) Ur Oxycodone Screen Negative (NEGATIVE) Ur EDDP (Meth Metab) Negative (NEGATIVE) Urine Methadone Screen Negative (NEGATIVE) Ur Barbituates Screen Negative (NEGATIVE) Ur Tricyclics Screen Negative (NEGATIVE) Ur Phencyclidine Scrn Negative (NEGATIVE) Ur Amphetamines Screen Negative (NEGATIVE) U Methamphetamines Scrn Negative (NEGATIVE) Urine MDMA Screen Negative (NEGATIVE) U Benzodiazepines Scrn Negative (NEGATIVE) Urine Cocaine Screen Negative (NEGATIVE) U Marijuana (THC) Screen Negative (NEGATIVE) Ethyl Alcohol (0-3) mg/dL SARS CoV-2 RNA Rapid JEAN-PAUL (NEGATIVE) Meds: Medications Generic Name Dose Route Start Last Admin Trade Name Freq PRN Reason Stop Dose Admin Sodium Chloride 10 ml 08/10/20 10:52 Saline Flush FLUSH ASDIRECTED PRN Keep Vein Open Discontinued Medications Generic Name Dose Route Start Last Admin Trade Name Freq PRN Reason Stop Dose Admin Albuterol/Ipratropium 3 ml 08/10/20 10:53 Duoneb 3.0-0.5 Mg/3 Ml NEB 08/10/20 10:54 ONETIME ONE Albuterol/Ipratropium 3 ml 08/10/20 10:54 08/10/20 10:50 Duoneb 3.0-0.5 Mg/3 Ml NEB 08/10/20 10:55 3 ml ONETIME ONE Administration Ceftriaxone Sodium 1 gm 08/10/20 12:40 08/10/20 12:45 Rocephin IVPUSH 08/10/20 12:41 1 gm STAT ONE Administration Dexamethasone 8 mg 08/10/20 11:10 08/10/20 11:18 Dexamethasone IV 08/10/20 11:11 Not Given ONETIME ONE Dexamethasone Confirm 08/10/20 11:23 08/10/20 11:16 Decadron Administered 08/10/20 11:24 8 mg Dose Administration 8 mg .ROUTE .STK-MED ONE Lorazepam 1 mg 08/10/20 11:39 08/10/20 11:43 Ativan IVPUSH 08/10/20 11:40 1 mg STAT ONE Administration Lorazepam Confirm 08/10/20 11:50 08/10/20 12:37 Ativan Administered 08/10/20 11:51 Not Given Dose 2 mg .ROUTE .STK-MED ONE Ondansetron HCl 4 mg 08/10/20 10:53 08/10/20 11:18 Zofran IVPUSH 08/10/20 10:54 4 mg ONETIME ONE Administration Departure - Departure Time of Disposition: 13:14 Disposition: Refer to Observation Condition: Good Clinical Impression: COVID-19, Anxiety, Hx of diabetes mellitus, Elevated lactic acid level - Discharge Information Referrals: PCP,Not In Area [Primary Care Provider] - Sepsis Event Note (ED) - Focused Exam Vital Signs: Vital Signs Temp Pulse Resp BP Pulse Ox 08/10/20 12:03 113 H 32 H 142/88 H 97 08/10/20 11:20 125 H 34 H 145/92 H 93 L 08/10/20 10:35 36.5 C 136 H 36 H 158/80 H 89 L - My Orders Last 24 Hours: My Active Orders 08/10/20 10:52 EKG Documentation Completion [RC] STAT Sodium Chloride 0.9% [Saline Flush] 10 ml FLUSH ASDIRECTED PRN Saline Lock Insert [OM.PC] Stat 11/26/20 10:53 Blood Culture x2 Reflex Set [OM.PC] Stat 08/10/20 11:21 CULTURE BLOOD [BC] Stat 08/10/20 11:26 CULTURE BLOOD [BC] Stat 08/10/20 13:16 Patient Status [ADT] Routine - Assessment/Plan Admission H&P: Please use this note as an admission H&P Last 24 Hours: My Active Orders 08/10/20 10:52 EKG Documentation Completion [RC] STAT Sodium Chloride 0.9% [Saline Flush] 10 ml FLUSH ASDIRECTED PRN Saline Lock Insert [OM.PC] Stat 08/10/20 10:53 Blood Culture x2 Reflex Set [OM.PC] Stat 08/10/20 11:21 CULTURE BLOOD [BC] Stat 08/10/20 11:26 CULTURE BLOOD [BC] Stat 08/10/20 13:16 Patient Status [ADT] Routine Assessment:: 1)COVID+ 2)Elevated Lactic Acid R/O Sepsis 3)Anxiety 4)Hx T2DM Plan: -Will admit for observation -Repeat Lactic Acid about 1600 today -Schedule Susan
[2020-08-10] MEDS ORDERED: Dexamethasone 4 MG/ML 5 ML MDV IV ONE (11:10)
[2020-08-10] MEDS ORDERED: Dexamethasone 4 MG/ML SDV ONE (11:23)
--- NOTE | 2020-08-10 11:36 | CR ---
[id number] RAD/RAD Chest PA or AP 1V EXAM: RAD Chest PA or AP 1V INDICATION: SHORTNESS OF BREATH. COMPARISON: June 27, 2020. DISCUSSION: Cardiomediastinal silhouette is normal in size and contour. Scattered areas of nonmasslike parenchymal opacification both lungs. Findings are most consistent with pneumonia, including sequela of Covid 19. Findings were not seen previously. Low lung volumes result in bibasal vascular crowding. No pneumothorax or pleural effusion. IMPRESSION: As above. Ariel Rudolph MD 08/10/20 1135 Thank you for allowing us to participate in the care of your patient.
[2020-08-10] MEDS ORDERED: LORazepam 2 MG/ML SDV IVPUSH ONE (11:39)
[2020-08-10] MEDS ORDERED: LORazepam 2 MG/ML SDV ONE (11:50)
[2020-08-10 11:58] LABS: BUPRENORPHINE,URINE NEGATIVE (NEGATIVE); MARIJUANA,URINE NEGATIVE (NEGATIVE); METHYLENEDIOXYMETHAMP,UR NEGATIVE (NEGATIVE); PHENCYCLIDINE,URINE NEGATIVE (NEGATIVE)
[2020-08-10 12:07] LABS: CHLORIDE,CL 99 mmol/L (98-107); SODIUM,NA 135 mmol/L (136-145)
[2020-08-10 12:11] LABS: ANION GAP 20.5 mmol/L (10-20)
[2020-08-10] MEDS ORDERED: cefTRIAXone 1 GM Vial IVPUSH ONE (12:40)
[2020-08-10] MEDS ORDERED: Ondansetron 4 MG Tab.DIS PO PRN (13:25)
[2020-08-10] MEDS ORDERED: Ibuprofen 200 MG Tab PO PRN (13:25)
[2020-08-10] MEDS ORDERED: Flumazenil 0.1 MG/ML 5 ML MDV IVPUSH PRN (13:33)
[2020-08-10] MEDS ORDERED: glyBURIDE 5 MG Tab PO SCH (13:45)
[2020-08-10] MEDS: Lisinopril 20 MG Tab PO SCH (13:55)
[2020-08-10] MEDS: Azithromycin 250 MG Tab PO SCH (13:55)
[2020-08-10] MEDS: Acetaminophen 325 MG Tab PO PRN (14:00)
[2020-08-10] MEDS: Albuterol/Ipratropium 3.0-0.5 MG/3 ML Neb Soln NEB PRN ×2 (14:00→20:39)
[2020-08-10] MEDS: glyBURIDE 5 MG Tab PO SCH (15:01)
[2020-08-10] MEDS: metFORMIN 500 MG Tab PO SCH (15:03)
[2020-08-10] MEDS ORDERED: Glucagon,Human Recombinant 1 MG Vial IM PRN (18:01)
[2020-08-10] MEDS ORDERED: 50% Dextrose in Water 50 ML Syringe IV PRN (18:01)
[2020-08-10] MEDS ORDERED: Sodium Chloride 0.9% 500 ML IV ONE (18:07)
[2020-08-10] MEDS: Insulin Regular, Human 100 Units/ML 3 ML Vial SUBCUT SCH (18:23)
[2020-08-10] MEDS: atorvaSTATin 10 MG Tab PO SCH (19:40)
[2020-08-10] MEDS: Sodium Chloride 0.9% 1,000 ML IV SCH (19:41)
[2020-08-10 19:48] LABS: ANION GAP 17.1 mmol/L (10-20)
[2020-08-10] MEDS ORDERED: Insulin Regular, Human 100 Units/ML 3 ML Vial SUBCUT STA (20:22)
[2020-08-10] MEDS: Ondansetron 4 MG/2 ML SDV IV PRN (20:40)
[2020-08-11] MEDS: Ondansetron 4 MG/2 ML SDV IV PRN (01:59)
[2020-08-11] MEDS: Sodium Chloride 0.9% 10 ML Syringe FLUSH PRN ×2 (02:03→03:15)
[2020-08-11] MEDS: Acetaminophen 325 MG Tab PO PRN ×2 (02:04→22:54)
[2020-08-11] MEDS: Albuterol/Ipratropium 3.0-0.5 MG/3 ML Neb Soln NEB PRN ×3 (02:05→22:30)
[2020-08-11] MEDS: LORazepam 2 MG/ML SDV IVPUSH PRN ×2 (03:07→22:55)
[2020-08-11] MEDS: Sodium Chloride 0.9% 1,000 ML IV SCH ×3 (05:00→21:37)
[2020-08-11 07:49] LABS: CHLORIDE,CL 105 mmol/L (98-107); SODIUM,NA 139 mmol/L (136-145)
[2020-08-11 07:54] LABS: ANION GAP 15.7 mmol/L (10-20)
[2020-08-11] MEDS: metFORMIN 500 MG Tab PO SCH (07:55)
[2020-08-11] MEDS: Azithromycin 250 MG Tab PO SCH (07:55)
[2020-08-11] MEDS: glyBURIDE 5 MG Tab PO SCH (07:56)
[2020-08-11] MEDS: Lisinopril 20 MG Tab PO SCH (07:56)
[2020-08-11] MEDS: Insulin Regular, Human 100 Units/ML 3 ML Vial SUBCUT SCH ×3 (07:59→17:55)
[2020-08-11] MEDS ORDERED: metFORMIN 500 MG Tab PO SCH (08:00)
[2020-08-11] MEDS ORDERED: Benzonatate 100 MG Cap PO PRN (09:00)
--- NOTE | 2020-08-11 09:04 | PCM.PN ---
- General Info Date of Service: 08/11/20 Subjective Update: Pt. is much improved today. She is off oxygen. Coughing has continued which causes the patient to be anxious. She states that nebulizer treatments have been helping. Pt. has been eating and drinking. She is still on NS at 125ml/hr. She is able to get up to the toilet on her own. Blood sugar has been trending downward. She was started back on her oral medication for diabetes. Functional Status: Reports: Pain Controlled - Review of Systems General: Reports: No Symptoms HEENT: Reports: No Symptoms Pulmonary: Reports: Cough Cardiovascular: Reports: No Symptoms Gastrointestinal: Reports: No Symptoms Genitourinary: Reports: No Symptoms Musculoskeletal: Reports: No Symptoms Skin: Reports: No Symptoms Neurological: Reports: No Symptoms Psychiatric: Reports: No Symptoms - Patient Data Vitals - Most Recent: Last Vital Signs Temp 36.6 C 08/11/20 05:48 Pulse 84 08/11/20 05:48 Resp 18 08/11/20 05:48 BP 137/68 08/11/20 07:56 Pulse Ox 94 L 08/11/20 05:55 Weight - Most Recent: 93.894 kg I&O - Last 24 Hours: Intake & Output 08/10/20 08/11/20 08/11/20 22:59 06:59 14:59 Intake Total 600 2500 180 Output Total 300 1600 Balance 300 900 180 Lab Results Last 24 Hours: Laboratory Results - last 24 hr 08/10/20 08/10/20 08/10/20 Range/Units 10:55 11:21 11:21 WBC 9.7 (4.0-10.0) x10^3/uL RBC 5.74 H (4.00-5.50) x10^6/uL Hgb 15.9 (12.0-16.0) g/dL Hct 46.2 (33.0-47.0) % MCV 80.5 (78.0-93.0) fL MCH 27.7 (26.0-32.0) pg MCHC 34.4 (32.0-36.0) g/dL RDW Coeff of [place] 13.7 (10.0-15.0) % Plt Count 186 (130-400) x10^3/uL Add Manual Diff Yes Neutrophils % (Manual) 43 L (50-80) % Band Neutrophils % 4 (0-6) % Lymphocytes % (Manual) 15 L (25-50) % Reactive Lymphs % 28 H (0) % Monocytes % (Manual) 9 (2-11) % Eosinophils % (Manual) 1 (0-4) % Platelet Estimate Adequate PT 9.6 (9.5-12.3) SEC INR 0.9 L (2.0-3.5) D-Dimer, Quantitative (<=0.58) mg/LFEU POC VBG pH (7.32-7.43) pH POC VBG pCO2 (41-51) mmHg POC VBG pO2 mmHg POC VBG HCO3 (22-29) mmol/L POC Venous O2 Sat % VBG Base Excess (-(2)-3) mmol/L POC FiO2 Sodium (136-145) mmol/L Potassium (3.5-5.1) mmol/L Chloride (98-107) mmol/L Carbon Dioxide (21-32) mmol/L POC Venous Total CO2 (23-30) mmol/L Anion Gap (10-20) mmol/L BUN (7-18) mg/dL Creatinine (0.55-1.02) mg/dL Est Cr Clr Drug Dosing mL/min Estimated GFR (MDRD) Glucose (74-106) mg/dL POC Glucose (74-106) mg/dL Lactic Acid (0.4-2.0) mmol/L Calcium (8.5-10.1) mg/dL Corrected Calcium (8.5-10.1) mg/dL Ferritin (8-252) ng/mL Total Bilirubin (0.2-1.0) mg/dL AST (15-37) U/L ALT (14-59) U/L Alkaline Phosphatase (46-116) U/L Troponin I (<=0.056) ng/mL Total Protein (6.4-8.2) g/dL Albumin (3.4-5.0) g/dL Globulin Albumin/Globulin Ratio Urine Color (YELLOW) Urine Appearance (CLEAR) Urine pH (5.0-8.0) Ur Specific Spring Urine Protein (NEGATIVE) mg/dL Urine Glucose (UA) (NEGATIVE) mg/dL Urine Ketones (NEGATIVE) mg/dL Urine Occult Blood (NEGATIVE) Urine Nitrite (NEGATIVE) Urine Bilirubin (NEGATIVE) Urine Urobilinogen (0.2) EU/dL Ur Leukocyte Esterase (NEGATIVE) U Hyaline Cast (Auto) Urine RBC (NOT SEEN) /HPF Urine WBC (NOT SEEN) /HPF Ur Squamous Epith Cells (NEGATIVE) /HPF Urine Bacteria (NEGATIVE) /HPF Urine Mucus (NEGATIVE) /LPF Urine Opiates Screen (NEGATIVE) Ur Buprenorphine Scrn (NEGATIVE) Ur Oxycodone Screen (NEGATIVE) Ur EDDP (Meth Metab) (NEGATIVE) Urine Methadone Screen (NEGATIVE) Ur Barbituates Screen (NEGATIVE) Ur Tricyclics Screen (NEGATIVE) Ur Phencyclidine Scrn (NEGATIVE) Ur Amphetamines Screen (NEGATIVE) U Methamphetamines Scrn (NEGATIVE) Urine MDMA Screen (NEGATIVE) U Benzodiazepines Scrn (NEGATIVE) Urine Cocaine Screen (NEGATIVE) U Marijuana (THC) Screen (NEGATIVE) Ethyl Alcohol (0-3) mg/dL SARS CoV-2 RNA Rapid JEAN-PAUL Positive H (NEGATIVE) 08/10/20 08/10/20 08/10/20 Range/Units 11:21 11:21 11:21 WBC (4.0-10.0) x10^3/uL RBC (4.00-5.50) x10^6/uL Hgb (12.0-16.0) g/dL Hct (33.0-47.0) % MCV (78.0-93.0) fL MCH (26.0-32.0) pg MCHC (32.0-36.0) g/dL RDW Coeff of [place] (10.0-15.0) % Plt Count (130-400) x10^3/uL Add Manual Diff Neutrophils % (Manual) (50-80) % Band Neutrophils % (0-6) % Lymphocytes % (Manual) (25-50) % Reactive Lymphs % (0) % Monocytes % (Manual) (2-11) % Eosinophils % (Manual) (0-4) % Platelet Estimate PT (9.5-12.3) SEC INR (2.0-3.5) D-Dimer, Quantitative 0.54 (<=0.58) mg/LFEU POC VBG pH (7.32-7.43) pH POC VBG pCO2 (41-51) mmHg POC VBG pO2 mmHg POC VBG HCO3 (22-29) mmol/L POC Venous O2 Sat % VBG Base Excess (-(2)-3) mmol/L POC FiO2 Sodium 135 L (136-145) mmol/L Potassium 3.5 (3.5-5.1) mmol/L Chloride 99 (98-107) mmol/L Carbon Dioxide 19 L (21-32) mmol/L POC Venous Total CO2 (23-30) mmol/L Anion Gap 20.5 H (10-20) mmol/L BUN 12 (7-18) mg/dL Creatinine 0.8 (0.55-1.02) mg/dL Est Cr Clr Drug Dosing 98.07 mL/min Estimated GFR (MDRD) > 60 Glucose 326 H (74-106) mg/dL POC Glucose (74-106) mg/dL Lactic Acid 2.5 H* (0.4-2.0) mmol/L Calcium 8.4 L (8.5-10.1) mg/dL Corrected Calcium 8.80 (8.5-10.1) mg/dL Ferritin (8-252) ng/mL Total Bilirubin 1.1 H (0.2-1.0) mg/dL AST 17 (15-37) U/L ALT 24 (14-59) U/L Alkaline Phosphatase 89 (46-116) U/L Troponin I < 0.017 (<=0.056) ng/mL Total Protein 8.1 (6.4-8.2) g/dL Albumin 3.5 (3.4-5.0) g/dL Globulin 4.6 Albumin/Globulin Ratio 0.76 Urine Color (YELLOW) Urine Appearance (CLEAR) Urine pH (5.0-8.0) Ur Specific Spring Urine Protein (NEGATIVE) mg/dL Urine Glucose (UA) (NEGATIVE) mg/dL Urine Ketones (NEGATIVE) mg/dL Urine Occult Blood (NEGATIVE) Urine Nitrite (NEGATIVE) Urine Bilirubin (NEGATIVE) Urine Urobilinogen (0.2) EU/dL Ur Leukocyte Esterase (NEGATIVE) U Hyaline Cast (Auto) Urine RBC (NOT SEEN) /HPF Urine WBC (NOT SEEN) /HPF Ur Squamous Epith Cells (NEGATIVE) /HPF Urine Bacteria (NEGATIVE) /HPF Urine Mucus (NEGATIVE) /LPF Urine Opiates Screen (NEGATIVE) Ur Buprenorphine Scrn (NEGATIVE) Ur Oxycodone Screen (NEGATIVE) Ur EDDP (Meth Metab) (NEGATIVE) Urine Methadone Screen (NEGATIVE) Ur Barbituates Screen (NEGATIVE) Ur Tricyclics Screen (NEGATIVE) Ur Phencyclidine Scrn (NEGATIVE) Ur Amphetamines Screen (NEGATIVE) U Methamphetamines Scrn (NEGATIVE) Urine MDMA Screen (NEGATIVE) U Benzodiazepines Scrn (NEGATIVE) Urine Cocaine Screen (NEGATIVE) U Marijuana (THC) Screen (NEGATIVE) Ethyl Alcohol (0-3) mg/dL SARS CoV-2 RNA Rapid JEAN-PAUL (NEGATIVE) 08/10/20 08/10/20 08/10/20 Range/Units 11:21 11:21 11:38 WBC (4.0-10.0) x10^3/uL RBC (4.00-5.50) x10^6/uL Hgb (12.0-16.0) g/dL Hct (33.0-47.0) % MCV (78.0-93.0) fL MCH (26.0-32.0) pg MCHC (32.0-36.0) g/dL RDW Coeff of [place] (10.0-15.0) % Plt Count (130-400) x10^3/uL Add Manual Diff Neutrophils % (Manual) (50-80) % Band Neutrophils % (0-6) % Lymphocytes % (Manual) (25-50) % Reactive Lymphs % (0) % Monocytes % (Manual) (2-11) % Eosinophils % (Manual) (0-4) % Platelet Estimate PT (9.5-12.3) SEC INR (2.0-3.5) D-Dimer, Quantitative (<=0.58) mg/LFEU POC VBG pH (7.32-7.43) pH POC VBG pCO2 (41-51) mmHg POC VBG pO2 mmHg POC VBG HCO3 (22-29) mmol/L POC Venous O2 Sat % VBG Base Excess (-(2)-3) mmol/L POC FiO2 Sodium (136-145) mmol/L Potassium (3.5-5.1) mmol/L Chloride (98-107) mmol/L Carbon Dioxide (21-32) mmol/L POC Venous Total CO2 (23-30) mmol/L Anion Gap (10-20) mmol/L BUN (7-18) mg/dL Creatinine (0.55-1.02) mg/dL Est Cr Clr Drug Dosing mL/min Estimated GFR (MDRD) Glucose (74-106) mg/dL POC Glucose (74-106) mg/dL Lactic Acid (0.4-2.0) mmol/L Calcium (8.5-10.1) mg/dL Corrected Calcium (8.5-10.1) mg/dL Ferritin 284 H (8-252) ng/mL Total Bilirubin (0.2-1.0) mg/dL AST (15-37) U/L ALT (14-59) U/L Alkaline Phosphatase (46-116) U/L Troponin I (<=0.056) ng/mL Total Protein (6.4-8.2) g/dL Albumin (3.4-5.0) g/dL Globulin Albumin/Globulin Ratio Urine Color Dark yellow H (YELLOW) Urine Appearance Slightly cloudy H (CLEAR) Urine pH 5.5 (5.0-8.0) Ur Specific Spring >=1.030 Urine Protein >=300 H (NEGATIVE) mg/dL Urine Glucose (UA) 500 H (NEGATIVE) mg/dL Urine Ketones 80 H (NEGATIVE) mg/dL Urine Occult Blood Trace-lysed H (NEGATIVE) Urine Nitrite Negative (NEGATIVE) Urine Bilirubin Small H (NEGATIVE) Urine Urobilinogen 0.2 (0.2) EU/dL Ur Leukocyte Esterase Negative (NEGATIVE) U Hyaline Cast (Auto) Moderate Urine RBC 5-10 H (NOT SEEN) /HPF Urine WBC 0-5 (NOT SEEN) /HPF Ur Squamous Epith Cells Moderate H (NEGATIVE) /HPF Urine Bacteria Not seen (NEGATIVE) /HPF Urine Mucus Not seen (NEGATIVE) /LPF Urine Opiates Screen (NEGATIVE) Ur Buprenorphine Scrn (NEGATIVE) Ur Oxycodone Screen (NEGATIVE) Ur EDDP (Meth Metab) (NEGATIVE) Urine Methadone Screen (NEGATIVE) Ur Barbituates Screen (NEGATIVE) Ur Tricyclics Screen (NEGATIVE) Ur Phencyclidine Scrn (NEGATIVE) Ur Amphetamines Screen (NEGATIVE) U Methamphetamines Scrn (NEGATIVE) Urine MDMA Screen (NEGATIVE) U Benzodiazepines Scrn (NEGATIVE) Urine Cocaine Screen (NEGATIVE) U Marijuana (THC) Screen (NEGATIVE) Ethyl Alcohol < 3 (0-3) mg/dL SARS CoV-2 RNA Rapid JEAN-PAUL (NEGATIVE) 08/10/20 08/10/20 08/10/20 Range/Units 11:38 15:07 16:15 WBC (4.0-10.0) x10^3/uL RBC (4.00-5.50) x10^6/uL Hgb (12.0-16.0) g/dL Hct (33.0-47.0) % MCV (78.0-93.0) fL MCH (26.0-32.0) pg MCHC (32.0-36.0) g/dL RDW Coeff of [place] (10.0-15.0) % Plt Count (130-400) x10^3/uL Add Manual Diff Neutrophils % (Manual) (50-80) % Band Neutrophils % (0-6) % Lymphocytes % (Manual) (25-50) % Reactive Lymphs % (0) % Monocytes % (Manual) (2-11) % Eosinophils % (Manual) (0-4) % Platelet Estimate PT (9.5-12.3) SEC INR (2.0-3.5) D-Dimer, Quantitative (<=0.58) mg/LFEU POC VBG pH (7.32-7.43) pH POC VBG pCO2 (41-51) mmHg POC VBG pO2 mmHg POC VBG HCO3 (22-29) mmol/L POC Venous O2 Sat % VBG Base Excess (-(2)-3) mmol/L POC FiO2 Sodium (136-145) mmol/L Potassium (3.5-5.1) mmol/L Chloride (98-107) mmol/L Carbon Dioxide (21-32) mmol/L POC Venous Total CO2 (23-30) mmol/L Anion Gap (10-20) mmol/L BUN (7-18) mg/dL Creatinine (0.55-1.02) mg/dL Est Cr Clr Drug Dosing mL/min Estimated GFR (MDRD) Glucose (74-106) mg/dL POC Glucose 385 H (74-106) mg/dL Lactic Acid 2.0 (0.4-2.0) mmol/L Calcium (8.5-10.1) mg/dL Corrected Calcium (8.5-10.1) mg/dL Ferritin (8-252) ng/mL Total Bilirubin (0.2-1.0) mg/dL AST (15-37) U/L ALT (14-59) U/L Alkaline Phosphatase (46-116) U/L Troponin I (<=0.056) ng/mL Total Protein (6.4-8.2) g/dL Albumin (3.4-5.0) g/dL Globulin Albumin/Globulin Ratio Urine Color (YELLOW) Urine Appearance (CLEAR) Urine pH (5.0-8.0) Ur Specific Spring Urine Protein (NEGATIVE) mg/dL Urine Glucose (UA) (NEGATIVE) mg/dL Urine Ketones (NEGATIVE) mg/dL Urine Occult Blood (NEGATIVE) Urine Nitrite (NEGATIVE) Urine Bilirubin (NEGATIVE) Urine Urobilinogen (0.2) EU/dL Ur Leukocyte Esterase (NEGATIVE) U Hyaline Cast (Auto) Urine RBC (NOT SEEN) /HPF Urine WBC (NOT SEEN) /HPF Ur Squamous Epith Cells (NEGATIVE) /HPF Urine Bacteria (NEGATIVE) /HPF Urine Mucus (NEGATIVE) /LPF Urine Opiates Screen Negative (NEGATIVE) Ur Buprenorphine Scrn Negative (NEGATIVE) Ur Oxycodone Screen Negative (NEGATIVE) Ur EDDP (Meth Metab) Negative (NEGATIVE) Urine Methadone Screen Negative (NEGATIVE) Ur Barbituates Screen Negative (NEGATIVE) Ur Tricyclics Screen Negative (NEGATIVE) Ur Phencyclidine Scrn Negative (NEGATIVE) Ur Amphetamines Screen Negative (NEGATIVE) U Methamphetamines Scrn Negative (NEGATIVE) Urine MDMA Screen Negative (NEGATIVE) U Benzodiazepines Scrn Negative (NEGATIVE) Urine Cocaine Screen Negative (NEGATIVE) U Marijuana (THC) Screen Negative (NEGATIVE) Ethyl Alcohol (0-3) mg/dL SARS CoV-2 RNA Rapid JEAN-PAUL (NEGATIVE) 08/10/20 08/10/20 08/10/20 Range/Units 17:52 17:55 18:47 WBC (4.0-10.0) x10^3/uL RBC (4.00-5.50) x10^6/uL Hgb (12.0-16.0) g/dL Hct (33.0-47.0) % MCV (78.0-93.0) fL MCH (26.0-32.0) pg MCHC (32.0-36.0) g/dL RDW Coeff of [place] (10.0-15.0) % Plt Count (130-400) x10^3/uL Add Manual Diff Neutrophils % (Manual) (50-80) % Band Neutrophils % (0-6) % Lymphocytes % (Manual) (25-50) % Reactive Lymphs % (0) % Monocytes % (Manual) (2-11) % Eosinophils % (Manual) (0-4) % Platelet Estimate PT (9.5-12.3) SEC INR (2.0-3.5) D-Dimer, Quantitative (<=0.58) mg/LFEU POC VBG pH (7.32-7.43) pH POC VBG pCO2 (41-51) mmHg POC VBG pO2 mmHg POC VBG HCO3 (22-29) mmol/L POC Venous O2 Sat % VBG Base Excess (-(2)-3) mmol/L POC FiO2 Sodium (136-145) mmol/L Potassium (3.5-5.1) mmol/L Chloride (98-107) mmol/L Carbon Dioxide (21-32) mmol/L POC Venous Total CO2 (23-30) mmol/L Anion Gap (10-20) mmol/L BUN (7-18) mg/dL Creatinine (0.55-1.02) mg/dL Est Cr Clr Drug Dosing mL/min Estimated GFR (MDRD) Glucose (74-106) mg/dL POC Glucose > 500 H* > 500 H* > 500 H* (74-106) mg/dL Lactic Acid (0.4-2.0) mmol/L Calcium (8.5-10.1) mg/dL Corrected Calcium (8.5-10.1) mg/dL Ferritin (8-252) ng/mL Total Bilirubin (0.2-1.0) mg/dL AST (15-37) U/L ALT (14-59) U/L Alkaline Phosphatase (46-116) U/L Troponin I (<=0.056) ng/mL Total Protein (6.4-8.2) g/dL Albumin (3.4-5.0) g/dL Globulin Albumin/Globulin Ratio Urine Color (YELLOW) Urine Appearance (CLEAR) Urine pH (5.0-8.0) Ur Specific Spring Urine Protein (NEGATIVE) mg/dL Urine Glucose (UA) (NEGATIVE) mg/dL Urine Ketones (NEGATIVE) mg/dL Urine Occult Blood (NEGATIVE) Urine Nitrite (NEGATIVE) Urine Bilirubin (NEGATIVE) Urine Urobilinogen (0.2) EU/dL Ur Leukocyte Esterase (NEGATIVE) U Hyaline Cast (Auto) Urine RBC (NOT SEEN) /HPF Urine WBC (NOT SEEN) /HPF Ur Squamous Epith Cells (NEGATIVE) /HPF Urine Bacteria (NEGATIVE) /HPF Urine Mucus (NEGATIVE) /LPF Urine Opiates Screen (NEGATIVE) Ur Buprenorphine Scrn (NEGATIVE) Ur Oxycodone Screen (NEGATIVE) Ur EDDP (Meth Metab) (NEGATIVE) Urine Methadone Screen (NEGATIVE) Ur Barbituates Screen (NEGATIVE) Ur Tricyclics Screen (NEGATIVE) Ur Phencyclidine Scrn (NEGATIVE) Ur Amphetamines Screen (NEGATIVE) U Methamphetamines Scrn (NEGATIVE) Urine MDMA Screen (NEGATIVE) U Benzodiazepines Scrn (NEGATIVE) Urine Cocaine Screen (NEGATIVE) U Marijuana (THC) Screen (NEGATIVE) Ethyl Alcohol (0-3) mg/dL SARS CoV-2 RNA Rapid JEAN-PAUL (NEGATIVE) 08/10/20 08/10/20 08/10/20 Range/Units 19:17 19:17 21:41 WBC (4.0-10.0) x10^3/uL RBC (4.00-5.50) x10^6/uL Hgb (12.0-16.0) g/dL Hct (33.0-47.0) % MCV (78.0-93.0) fL MCH (26.0-32.0) pg MCHC (32.0-36.0) g/dL RDW Coeff of [place] (10.0-15.0) % Plt Count (130-400) x10^3/uL Add Manual Diff Neutrophils % (Manual) (50-80) % Band Neutrophils % (0-6) % Lymphocytes % (Manual) (25-50) % Reactive Lymphs % (0) % Monocytes % (Manual) (2-11) % Eosinophils % (Manual) (0-4) % Platelet Estimate PT (9.5-12.3) SEC INR (2.0-3.5) D-Dimer, Quantitative (<=0.58) mg/LFEU POC VBG pH 7.38 (7.32-7.43) pH POC VBG pCO2 34 L (41-51) mmHg POC VBG pO2 40 mmHg POC VBG HCO3 20 L (22-29) mmol/L POC Venous O2 Sat 75 % VBG Base Excess -5 L (-(2)-3) mmol/L POC FiO2 0.21 Sodium 132 L (136-145) mmol/L Potassium 4.1 (3.5-5.1) mmol/L Chloride 98 (98-107) mmol/L Carbon Dioxide 21 (21-32) mmol/L POC Venous Total CO2 20 L (23-30) mmol/L Anion Gap 17.1 (10-20) mmol/L BUN 19 H (7-18) mg/dL Creatinine 1.2 H (0.55-1.02) mg/dL Est Cr Clr Drug Dosing 65.38 mL/min Estimated GFR (MDRD) 51 Glucose 540 H* (74-106) mg/dL POC Glucose 374 H (74-106) mg/dL Lactic Acid (0.4-2.0) mmol/L Calcium 7.9 L (8.5-10.1) mg/dL Corrected Calcium (8.5-10.1) mg/dL Ferritin (8-252) ng/mL Total Bilirubin (0.2-1.0) mg/dL AST (15-37) U/L ALT (14-59) U/L Alkaline Phosphatase (46-116) U/L Troponin I (<=0.056) ng/mL Total Protein (6.4-8.2) g/dL Albumin (3.4-5.0) g/dL Globulin Albumin/Globulin Ratio Urine Color (YELLOW) Urine Appearance (CLEAR) Urine pH (5.0-8.0) Ur Specific Spring Urine Protein (NEGATIVE) mg/dL Urine Glucose (UA) (NEGATIVE) mg/dL Urine Ketones (NEGATIVE) mg/dL Urine Occult Blood (NEGATIVE) Urine Nitrite (NEGATIVE) Urine Bilirubin (NEGATIVE) Urine Urobilinogen (0.2) EU/dL Ur Leukocyte Esterase (NEGATIVE) U Hyaline Cast (Auto) Urine RBC (NOT SEEN) /HPF Urine WBC (NOT SEEN) /HPF Ur Squamous Epith Cells (NEGATIVE) /HPF Urine Bacteria (NEGATIVE) /HPF Urine Mucus (NEGATIVE) /LPF Urine Opiates Screen (NEGATIVE) Ur Buprenorphine Scrn (NEGATIVE) Ur Oxycodone Screen (NEGATIVE) Ur EDDP (Meth Metab) (NEGATIVE) Urine Methadone Screen (NEGATIVE) Ur Barbituates Screen (NEGATIVE) Ur Tricyclics Screen (NEGATIVE) Ur Phencyclidine Scrn (NEGATIVE) Ur Amphetamines Screen (NEGATIVE) U Methamphetamines Scrn (NEGATIVE) Urine MDMA Screen (NEGATIVE) U Benzodiazepines Scrn (NEGATIVE) Urine Cocaine Screen (NEGATIVE) U Marijuana (THC) Screen (NEGATIVE) Ethyl Alcohol (0-3) mg/dL SARS CoV-2 RNA Rapid JEAN-PAUL (NEGATIVE) 08/10/20 08/11/20 08/11/20 Range/Units 23:27 03:06 07:12 WBC 7.3 (4.0-10.0) x10^3/uL RBC 4.66 (4.00-5.50) x10^6/uL Hgb 13.1 D (12.0-16.0) g/dL Hct 38.4 (33.0-47.0) % MCV 82.4 (78.0-93.0) fL MCH 28.1 (26.0-32.0) pg MCHC 34.1 (32.0-36.0) g/dL RDW Coeff of [place] 13.4 (10.0-15.0) % Plt Count 191 (130-400) x10^3/uL Add Manual Diff Yes Neutrophils % (Manual) 60 (50-80) % Band Neutrophils % 7 H (0-6) % Lymphocytes % (Manual) 20 L (25-50) % Reactive Lymphs % 7 H (0) % Monocytes % (Manual) 6 (2-11) % Eosinophils % (Manual) (0-4) % Platelet Estimate Adequate PT (9.5-12.3) SEC INR (2.0-3.5) D-Dimer, Quantitative (<=0.58) mg/LFEU POC VBG pH (7.32-7.43) pH POC VBG pCO2 (41-51) mmHg POC VBG pO2 mmHg POC VBG HCO3 (22-29) mmol/L POC Venous O2 Sat % VBG Base Excess (-(2)-3) mmol/L POC FiO2 Sodium (136-145) mmol/L Potassium (3.5-5.1) mmol/L Chloride (98-107) mmol/L Carbon Dioxide (21-32) mmol/L POC Venous Total CO2 (23-30) mmol/L Anion Gap (10-20) mmol/L BUN (7-18) mg/dL Creatinine (0.55-1.02) mg/dL Est Cr Clr Drug Dosing mL/min Estimated GFR (MDRD) Glucose (74-106) mg/dL POC Glucose 302 H 250 H (74-106) mg/dL Lactic Acid (0.4-2.0) mmol/L Calcium (8.5-10.1) mg/dL Corrected Calcium (8.5-10.1) mg/dL Ferritin (8-252) ng/mL Total Bilirubin (0.2-1.0) mg/dL AST (15-37) U/L ALT (14-59) U/L Alkaline Phosphatase (46-116) U/L Troponin I (<=0.056) ng/mL Total Protein (6.4-8.2) g/dL Albumin (3.4-5.0) g/dL Globulin Albumin/Globulin Ratio Urine Color (YELLOW) Urine Appearance (CLEAR) Urine pH (5.0-8.0) Ur Specific Spring Urine Protein (NEGATIVE) mg/dL Urine Glucose (UA) (NEGATIVE) mg/dL Urine Ketones (NEGATIVE) mg/dL Urine Occult Blood (NEGATIVE) Urine Nitrite (NEGATIVE) Urine Bilirubin (NEGATIVE) Urine Urobilinogen (0.2) EU/dL Ur Leukocyte Esterase (NEGATIVE) U Hyaline Cast (Auto) Urine RBC (NOT SEEN) /HPF Urine WBC (NOT SEEN) /HPF Ur Squamous Epith Cells (NEGATIVE) /HPF Urine Bacteria (NEGATIVE) /HPF Urine Mucus (NEGATIVE) /LPF Urine Opiates Screen (NEGATIVE) Ur Buprenorphine Scrn (NEGATIVE) Ur Oxycodone Screen (NEGATIVE) Ur EDDP (Meth Metab) (NEGATIVE) Urine Methadone Screen (NEGATIVE) Ur Barbituates Screen (NEGATIVE) Ur Tricyclics Screen (NEGATIVE) Ur Phencyclidine Scrn (NEGATIVE) Ur Amphetamines Screen (NEGATIVE) U Methamphetamines Scrn (NEGATIVE) Urine MDMA Screen (NEGATIVE) U Benzodiazepines Scrn (NEGATIVE) Urine Cocaine Screen (NEGATIVE) U Marijuana (THC) Screen (NEGATIVE) Ethyl Alcohol (0-3) mg/dL SARS CoV-2 RNA Rapid JEAN-PAUL (NEGATIVE) 08/11/20 Range/Units 07:12 WBC (4.0-10.0) x10^3/uL RBC (4.00-5.50) x10^6/uL Hgb (12.0-16.0) g/dL Hct (33.0-47.0) % MCV (78.0-93.0) fL MCH (26.0-32.0) pg MCHC (32.0-36.0) g/dL RDW Coeff of [place] (10.0-15.0) % Plt Count (130-400) x10^3/uL Add Manual Diff Neutrophils % (Manual) (50-80) % Band Neutrophils % (0-6) % Lymphocytes % (Manual) (25-50) % Reactive Lymphs % (0) % Monocytes % (Manual) (2-11) % Eosinophils % (Manual) (0-4) % Platelet Estimate PT (9.5-12.3) SEC INR (2.0-3.5) D-Dimer, Quantitative (<=0.58) mg/LFEU POC VBG pH (7.32-7.43) pH POC VBG pCO2 (41-51) mmHg POC VBG pO2 mmHg POC VBG HCO3 (22-29) mmol/L POC Venous O2 Sat % VBG Base Excess (-(2)-3) mmol/L POC FiO2 Sodium 139 (136-145) mmol/L Potassium 3.7 (3.5-5.1) mmol/L Chloride 105 (98-107) mmol/L Carbon Dioxide 22 (21-32) mmol/L POC Venous Total CO2 (23-30) mmol/L Anion Gap 15.7 (10-20) mmol/L BUN 12 (7-18) mg/dL Creatinine 0.7 (0.55-1.02) mg/dL Est Cr Clr Drug Dosing 112.08 mL/min Estimated GFR (MDRD) > 60 Glucose 238 H (74-106) mg/dL POC Glucose (74-106) mg/dL Lactic Acid (0.4-2.0) mmol/L Calcium 7.7 L (8.5-10.1) mg/dL Corrected Calcium (8.5-10.1) mg/dL Ferritin (8-252) ng/mL Total Bilirubin (0.2-1.0) mg/dL AST (15-37) U/L ALT (14-59) U/L Alkaline Phosphatase (46-116) U/L Troponin I (<=0.056) ng/mL Total Protein (6.4-8.2) g/dL Albumin (3.4-5.0) g/dL Globulin Albumin/Globulin Ratio Urine Color (YELLOW) Urine Appearance (CLEAR) Urine pH (5.0-8.0) Ur Specific Spring Urine Protein (NEGATIVE) mg/dL Urine Glucose (UA) (NEGATIVE) mg/dL Urine Ketones (NEGATIVE) mg/dL Urine Occult Blood (NEGATIVE) Urine Nitrite (NEGATIVE) Urine Bilirubin (NEGATIVE) Urine Urobilinogen (0.2) EU/dL Ur Leukocyte Esterase (NEGATIVE) U Hyaline Cast (Auto) Urine RBC (NOT SEEN) /HPF Urine WBC (NOT SEEN) /HPF Ur Squamous Epith Cells (NEGATIVE) /HPF Urine Bacteria (NEGATIVE) /HPF Urine Mucus (NEGATIVE) /LPF Urine Opiates Screen (NEGATIVE) Ur Buprenorphine Scrn (NEGATIVE) Ur Oxycodone Screen (NEGATIVE) Ur EDDP (Meth Metab) (NEGATIVE) Urine Methadone Screen (NEGATIVE) Ur Barbituates Screen (NEGATIVE) Ur Tricyclics Screen (NEGATIVE) Ur Phencyclidine Scrn (NEGATIVE) Ur Amphetamines Screen (NEGATIVE) U Methamphetamines Scrn (NEGATIVE) Urine MDMA Screen (NEGATIVE) U Benzodiazepines Scrn (NEGATIVE) Urine Cocaine Screen (NEGATIVE) U Marijuana (THC) Screen (NEGATIVE) Ethyl Alcohol (0-3) mg/dL SARS CoV-2 RNA Rapid JEAN-PAUL (NEGATIVE) [place] Results Last 24 Hours: Microbiology 08/10/20 11:21 Anaerobic Blood Culture - Final Blood - Venous Med Orders - Current: Current Medications Acetaminophen (Tylenol) 650 mg PO Q4H PRN PRN Reason: Pain (Mild 1-3)/fever Last Admin: 08/11/20 02:04 Dose: 650 mg Documented by: Albuterol/Ipratropium (Duoneb 3.0-0.5 Mg/3 Ml) 3 ml NEB Q4H PRN PRN Reason: dyspnea/wheezing Last Admin: 08/11/20 02:05 Dose: 3 ml Documented by: Atorvastatin Calcium (Lipitor) 10 mg PO BEDTIME [facility] Last Admin: 08/10/20 19:40 Dose: 10 mg Documented by: Azithromycin (Zithromax) 500 mg PO DAILY [facility] Last Admin: 08/11/20 07:55 Dose: 500 mg Documented by: Ceftriaxone Sodium (Rocephin) 1 gm IVPUSH Q24H [facility] Dextrose/Water (Dextrose 50% In Water) 50 ml IV ASDIRECTED PRN PRN Reason: Hypoglycemia Flumazenil (Romazicon) 0.2 mg IVPUSH ASDIRECTED PRN PRN Reason: Respiratory Depression Glucagon (Glucagen) 1 mg IM ASDIRECTED PRN PRN Reason: Hypoglycemia Glyburide (Micronase) 1.25 mg PO DAILY [facility] Last Admin: 08/11/20 07:56 Dose: 1.25 mg Documented by: Sodium Chloride (Normal Saline) 1,000 mls @ 125 mls/hr IV ASDIRECTED [facility] Last Admin: 08/11/20 05:00 Dose: 125 mls/hr Documented by: Ibuprofen (Motrin) 400 mg PO Q6H PRN PRN Reason: Pain (mild 1-3) Insulin Human Regular (Humulin R) 0 unit SUBCUT TIDMEALS [facility]; Protocol Last Admin: 08/11/20 07:59 Dose: 2 units Documented by: Lisinopril (Prinivil) 40 mg PO DAILY [facility] Last Admin: 08/11/20 07:56 Dose: 40 mg Documented by: Lorazepam (Ativan) 1 mg IVPUSH Q6H PRN PRN Reason: Anxiety Last Admin: 08/11/20 03:07 Dose: 1 mg Documented by: Metformin HCl (Glucophage) 250 mg PO DAILY [facility] Last Admin: 08/11/20 07:55 Dose: 250 mg Documented by: Ondansetron HCl (Zofran Odt) 4 mg PO Q4H PRN PRN Reason: nausea, able to take PO Ondansetron HCl (Zofran) 4 mg IV Q4H PRN PRN Reason: Nausea/Vomiting Last Admin: 08/11/20 01:59 Dose: 4 mg Documented by: Sodium Chloride (Saline Flush) 10 ml FLUSH ASDIRECTED PRN PRN Reason: Keep Vein Open Last Admin: 08/11/20 03:15 Dose: 10 ml Documented by: Discontinued Medications Albuterol/Ipratropium (Duoneb 3.0-0.5 Mg/3 Ml) 3 ml NEB ONETIME ONE Stop: 08/10/20 10:54 Last Admin: 08/10/20 15:50 Dose: Not Given Documented by: Albuterol/Ipratropium (Duoneb 3.0-0.5 Mg/3 Ml) 3 ml NEB ONETIME ONE Stop: 08/10/20 10:55 Last Admin: 08/10/20 10:50 Dose: 3 ml Documented by: Ceftriaxone Sodium (Rocephin) 1 gm IVPUSH STAT ONE Stop: 08/10/20 12:41 Last Admin: 08/10/20 12:45 Dose: 1 gm Documented by: Dexamethasone (Dexamethasone) 8 mg IV ONETIME ONE Stop: 08/10/20 11:11 Last Admin: 08/10/20 11:18 Dose: Not Given Documented by: Dexamethasone (Decadron) Confirm Administered Dose 8 mg .ROUTE .STK-MED ONE Stop: 08/10/20 11:24 Last Admin: 08/10/20 11:16 Dose: 8 mg Documented by: Glyburide (Micronase) 1.25 mg PO DAILY [facility] [place] Last Admin: 08/10/20 15:50 Dose: Not Given Documented by: Sodium Chloride (Normal Saline) 500 mls @ 500 mls/hr IV ONETIME ONE Stop: 08/10/20 19:06 Last Admin: 08/10/20 18:21 Dose: 500 mls/hr Documented by: Insulin Human Regular (Humulin R) 15 unit SUBCUT ONETIME STA Stop: 08/10/20 20:23 Last Admin: 08/10/20 20:33 Dose: 15 units Documented by: Lorazepam (Ativan) 1 mg IVPUSH STAT ONE Stop: 08/10/20 11:40 Last Admin: 08/10/20 11:43 Dose: 1 mg Documented by: Lorazepam (Ativan) Confirm Administered Dose 2 mg .ROUTE .STK-MED ONE Stop: 08/10/20 11:51 Last Admin: 08/10/20 12:37 Dose: Not Given Documented by: Metformin HCl (Glucophage) 250 mg PO DAILY [facility] [place] Ondansetron HCl (Zofran) 4 mg IVPUSH ONETIME ONE Stop: 08/10/20 10:54 Last Admin: 08/10/20 11:18 Dose: 4 mg Documented by: - Exam General: Alert, Oriented HEENT: Pupils Equal, Pupils Reactive, EOMI, Mucous Membr. Moist/[place] Neck: Supple Lungs: Decreased Breath Sounds, Crackles Cardiovascular: Regular Rate, Regular Rhythm GI/Abdominal Exam: Normal Bowel Sounds, Soft, Non-Tender, No Distention, No Mass Back Exam: Normal Inspection, Full Range of Motion Extremities: Normal Inspection, Normal Range of Motion, Non-Tender, No Pedal Edema, Normal Capillary Refill Skin: Warm, Dry, Intact Psy/Mental Status: Alert, Normal Affect Sepsis Event Note - Evaluation Sepsis Screening Result: No Definite Risk - Focused Exam Vital Signs: Vital Signs Temp Pulse Resp BP BP Pulse Ox 08/11/20 07:56 137/68 08/11/20 05:55 94 L 08/11/20 05:48 36.6 C 84 18 120/71 94 L 08/11/20 02:00 36.5 C 91 22 H 115/73 94 L 08/10/20 22:00 93 L 08/10/20 21:43 36.6 C 91 18 104/59 L 93 L - Problem List Review Problem List Initiated/Reviewed/Updated: Yes - Plan Plan:: Anticipate discharge tomorrow AM. Will continue IV rocephin and azithromycin, as well as dexamethasone. Continue IV fluids. Will encourage ambulation today. Pt. was started on tessalon perles for cough. She can continue ativan as needed for anxiety.
[2020-08-11] MEDS: cefTRIAXone 1 GM Vial IVPUSH SCH ×2 (11:50→12:02)
[2020-08-11] MEDS: atorvaSTATin 10 MG Tab PO SCH (21:00)
[2020-08-12] MEDS: Sodium Chloride 0.9% 1,000 ML IV SCH (05:51)
[2020-08-12 05:57] VITALS: PULSE 75
[2020-08-12] MEDS: Azithromycin 250 MG Tab PO SCH (07:58)
[2020-08-12] MEDS: Lisinopril 20 MG Tab PO SCH (07:58)
[2020-08-12] MEDS: metFORMIN 500 MG Tab PO SCH (08:00)
[2020-08-12] MEDS: glyBURIDE 5 MG Tab PO SCH (08:00)
[2020-08-12] MEDS: Insulin Regular, Human 100 Units/ML 3 ML Vial SUBCUT SCH (08:01)
[2020-08-12 08:02] VITALS: BP 124/62
--- NOTE | 2020-08-12 09:52 | EDM.PDOC ---
ED HPI GENERAL MEDICAL PROBLEM - General Chief Complaint: Respiratory Problem Stated Complaint: SOB Time Seen by Provider: 08/10/20 10:51 Source of Information: Reports: Patient, EMS - History of Present Illness INITIAL COMMENTS - FREE TEXT/NARRATIVE: Sadia is a 35 y/o female who is brought to the ER by EMS for SOB. She called 911 today and was very SOB and could hardly speak. She reports that she was tested for COVID 2 days ago and has been home on quarantine. This AM she got extremely SOB and started to have nausea and vomiting. She has been trying to drink fluids, but hasn't had much of an appetite. She reprots her blood sugar this AM was 302. She has not been taking her meds the last few days since she has been ill. Treatments [employer]: Reports: Oxygen Generalized Pain Score (Numeric/FACES): 6 Headache Pain Score (Numeric/FACES): 3 - Related Data Allergies Allergy/AdvReac Type Severity Reaction Status Date / Time codeine Allergy Rash Verified 06/27/20 14:24 Penicillins Allergy Rash Verified 08/10/20 16:06 blueberries Allergy Itching Uncoded 06/27/20 14:24 Home Meds: Home Meds Lisinopril 40 mg PO DAILY 04/10/17 [History] atorvaSTATin [Lipitor] 10 mg PO BEDTIME 04/09/20 [History] glyBURIDE/Metformin HCl [Glyburid-Metformin 1.25-250 mg] 1 each PO DAILY 04/09/20 [History] Albuterol [Ventolin HFA] 2 puff INH Q4H PRN #1 puff 06/27/20 [Rx] Ibuprofen 600 mg PO Q6H PRN 08/10/20 [History] Azithromycin [Zithromax] 500 mg PO DAILY #3 tablet 08/12/20 [Rx] Ibuprofen [Motrin] 400 mg PO Q6H PRN tablet 08/12/20 [Rx] Past Medical History Cardiovascular History: Reports: High Cholesterol, Hypertension Psychiatric History: Reports: Anxiety, Depression Endocrine/Metabolic History: Reports: Diabetes, Type II - Infectious Disease History Infectious Disease History: Reports: Novel Coronavirus - Past Surgical History HEENT Surgical History: Reports: Adenoidectomy, Tonsillectomy GI Surgical History: Reports: Cholecystectomy Female Surgical History: Reports: Hysterectomy Social & Family History - Family History Family Medical History: No Pertinent Family History - Tobacco Use Tobacco Use Status *Q: Current Some Day Tobacco User Years of Tobacco use: 10 Packs/Tins Daily: 0.2 Used Tobacco, but Quit: Yes Month/Year Tobacco Last Used: 1 week - Caffeine Use Caffeine Use: Reports: Coffee, Soda - Alcohol Use Days Per Week of Alcohol Use: 1 Number of Drinks Per Day: 2 Total Drinks Per Week: 2 - Recreational Drug Use Recreational Drug Use: No ED EXAM, GENERAL - Physical Exam Free Text/Narrative:: Sadia is a 35 y/o female who is brought to the ER by EMS for SOB. She called 911 today and was very SOB and could hardly speak. She reports that she was tested for COVID 2 days ago and has been home on quarantine. This AM she got extremely SOB and started to have nausea and vomiting. She has been trying to drink fluids, but hasn't had much of an appetite. She reprots her blood sugar this AM was 302. She has not been taking her meds the last few days since she h as been ill. General Appearance: Alert, WD/WN (Adult female, trying to catch her breath and coughing profusely, quite anxious.) Ears: Normal Canal, Hearing Grossly Normal Nose: Normal Inspection, Normal Mucosa Throat/Mouth: Normal Teeth, No Airway Compromise Head: Atraumatic Neck: Normal Inspection, Supple Respiratory/Chest: Respiratory Distress, Other (Occasional wheezing, scattered coarseness) Cardiovascular: Normal Peripheral Pulses, Regular Rate, Rhythm GI/Abdominal: Normal Bowel Sounds, Soft, Non-Tender, No Distention, No Mass Back Exam: Normal Inspection, Full Range of Motion Extremities: Normal Inspection, Normal Range of Motion, Non-Tender, No Pedal Edema, Normal Capillary Refill Neurological: Alert, Oriented, CN II-XII Intact Psychiatric: Normal Affect, Normal Mood Skin Exam: Warm, Dry, Intact, Normal Color Lymphatic: No Adenopathy Course - Vital Signs Last Recorded V/S: Last Vital Signs Temp 36.5 C 08/12/20 05:56 Pulse 75 08/12/20 05:56 Resp 18 08/12/20 05:56 BP 124/62 08/12/20 07:58 Pulse Ox 96 08/12/20 06:23 - Orders/Labs/Meds Orders: Medication Orders Acetaminophen (Tylenol) 650 mg PO Q4H PRN PRN Reason: Pain (Mild 1-3)/fever Last Admin: 08/11/20 22:54 Dose: 650 mg Documented by: Admin: 08/11/20 02:04 Dose: 650 mg Documented by: Admin: 08/10/20 14:00 Dose: 650 mg Documented by: CHIDI Albuterol/Ipratropium (Duoneb 3.0-0.5 Mg/3 Ml) 3 ml NEB Q4H PRN PRN Reason: dyspnea/wheezing Last Admin: 08/11/20 22:30 Dose: 3 ml Documented by: MARY ELLEN Admin: 08/11/20 14:10 Dose: 3 ml Documented by: Admin: 08/11/20 02:05 Dose: 3 ml Documented by: Admin: 08/10/20 20:39 Dose: 3 ml Documented by: Admin: 08/10/20 14:00 Dose: 3 ml Documented by: CHIDI Atorvastatin Calcium (Lipitor) 10 mg PO BEDTIME [facility] Last Admin: 08/11/20 21:00 Dose: 10 mg Documented by: Admin: 08/10/20 19:40 Dose: 10 mg Documented by: CHIDI Azithromycin (Zithromax) 500 mg PO DAILY [facility] Last Admin: 08/12/20 07:58 Dose: 500 mg Documented by: Admin: 08/11/20 07:55 Dose: 500 mg Documented by: Admin: 08/10/20 13:55 Dose: 500 mg Documented by: CHIDI Benzonatate (Tessalon Perles) 100 mg PO TID PRN PRN Reason: Cough Last Admin: 08/11/20 10:56 Dose: 100 mg Documented by: RIK Ceftriaxone Sodium (Rocephin) 1 gm IVPUSH Q24H [facility] Last Admin: 08/11/20 12:02 Dose: 1 gm Documented by: RIK Dextrose/Water (Dextrose 50% In Water) 50 ml IV ASDIRECTED PRN PRN Reason: Hypoglycemia Flumazenil (Romazicon) 0.2 mg IVPUSH ASDIRECTED PRN PRN Reason: Respiratory Depression Glucagon (Glucagen) 1 mg IM ASDIRECTED PRN PRN Reason: Hypoglycemia Glyburide (Micronase) 1.25 mg PO DAILY [facility] Last Admin: 08/12/20 08:00 Dose: 1.25 mg Documented by: Admin: 08/11/20 07:56 Dose: 1.25 mg Documented by: Admin: 08/10/20 15:01 Dose: 1.25 mg Documented by: CHIDI Sodium Chloride (Normal Saline) 1,000 mls @ 125 mls/hr IV ASDIRECTED [facility] Last Admin: 08/12/20 05:51 Dose: 125 mls/hr Documented by: Infusion: 08/12/20 05:37 Dose: 125 mls/hr Documented by: Admin: 08/11/20 21:37 Dose: 125 mls/hr Documented by: MARY ELLEN Infusion: 08/11/20 21:33 Dose: 125 mls/hr Documented by: MARY ELLEN Admin: 08/11/20 13:33 Dose: 125 mls/hr Documented by: Infusion: 08/11/20 13:00 Dose: 125 mls/hr Documented by: Admin: 08/11/20 05:00 Dose: 125 mls/hr Documented by: Infusion: 08/11/20 00:17 Dose: 125 mls/hr Documented by: Infusion: 08/10/20 20:49 Dose: 125 mls/hr Documented by: Admin: 08/10/20 19:41 Dose: 500 mls/hr Documented by: CHIDI Ibuprofen (Motrin) 400 mg PO Q6H PRN PRN Reason: Pain (mild 1-3) Insulin Human Regular (Humulin R) 0 unit SUBCUT TIDMEALS [facility]; Protocol Last Admin: 08/12/20 08:01 Dose: 1 units Documented by: Admin: 08/11/20 17:55 Dose: 1 units Documented by: Admin: 08/11/20 11:47 Dose: 2 units Documented by: Admin: 08/11/20 07:59 Dose: 2 units Documented by: Admin: 08/10/20 18:23 Dose: 5 units Documented by: CHIDI Lisinopril (Prinivil) 40 mg PO DAILY [facility] Last Admin: 08/12/20 07:58 Dose: 40 mg Documented by: Admin: 08/11/20 07:56 Dose: 40 mg Documented by: Admin: 08/10/20 13:55 Dose: 40 mg Documented by: CHIDI Lorazepam (Ativan) 1 mg IVPUSH Q6H PRN PRN Reason: Anxiety Last Admin: 08/11/20 22:55 Dose: 1 mg Documented by: Admin: 08/11/20 03:07 Dose: 1 mg Documented by: ASCENCION Metformin HCl (Glucophage) 250 mg PO DAILY [facility] Last Admin: 08/12/20 08:00 Dose: 250 mg Documented by: Admin: 08/11/20 07:55 Dose: 250 mg Documented by: Admin: 08/10/20 15:03 Dose: 250 mg Documented by: CHIDI Ondansetron HCl (Zofran Odt) 4 mg PO Q4H PRN PRN Reason: nausea, able to take PO Ondansetron HCl (Zofran) 4 mg IV Q4H PRN PRN Reason: Nausea/Vomiting Last Admin: 08/11/20 01:59 Dose: 4 mg Documented by: Admin: 08/10/20 20:40 Dose: 4 mg Documented by: CHIDI Sodium Chloride (Saline Flush) 10 ml FLUSH ASDIRECTED PRN PRN Reason: Keep Vein Open Last Admin: 08/11/20 03:15 Dose: 10 ml Documented by: Admin: 08/11/20 02:03 Dose: 10 ml Documented by: ASCENCION Labs: Laboratory Tests 08/10/20 08/10/20 08/10/20 Range/Units 10:55 11:21 11:21 WBC 9.7 (4.0-10.0) x10^3/uL RBC 5.74 H (4.00-5.50) x10^6/uL Hgb 15.9 (12.0-16.0) g/dL Hct 46.2 (33.0-47.0) % MCV 80.5 (78.0-93.0) fL MCH 27.7 (26.0-32.0) pg MCHC 34.4 (32.0-36.0) g/dL RDW Coeff of [place] 13.7 (10.0-15.0) % Plt Count 186 (130-400) x10^3/uL Add Manual Diff Yes Neutrophils % (Manual) 43 L (50-80) % Band Neutrophils % 4 (0-6) % Lymphocytes % (Manual) 15 L (25-50) % Reactive Lymphs % 28 H (0) % Monocytes % (Manual) 9 (2-11) % Eosinophils % (Manual) 1 (0-4) % Platelet Estimate Adequate PT 9.6 (9.5-12.3) SEC INR 0.9 L (2.0-3.5) D-Dimer, Quantitative (<=0.58) mg/LFEU Sodium (136-145) mmol/L Potassium (3.5-5.1) mmol/L Chloride (98-107) mmol/L Carbon Dioxide (21-32) mmol/L Anion Gap (10-20) mmol/L BUN (7-18) mg/dL Creatinine (0.55-1.02) mg/dL Est Cr Clr Drug Dosing mL/min Estimated GFR (MDRD) Glucose (74-106) mg/dL Lactic Acid (0.4-2.0) mmol/L Calcium (8.5-10.1) mg/dL Corrected Calcium (8.5-10.1) mg/dL Ferritin (8-252) ng/mL Total Bilirubin (0.2-1.0) mg/dL AST (15-37) U/L ALT (14-59) U/L Alkaline Phosphatase (46-116) U/L Troponin I (<=0.056) ng/mL Total Protein (6.4-8.2) g/dL Albumin (3.4-5.0) g/dL Globulin Albumin/Globulin Ratio Urine Color (YELLOW) Urine Appearance (CLEAR) Urine pH (5.0-8.0) Ur Specific Uriah Urine Protein (NEGATIVE) mg/dL Urine Glucose (UA) (NEGATIVE) mg/dL Urine Ketones (NEGATIVE) mg/dL Urine Occult Blood (NEGATIVE) Urine Nitrite (NEGATIVE) Urine Bilirubin (NEGATIVE) Urine Urobilinogen (0.2) EU/dL Ur Leukocyte Esterase (NEGATIVE) U Hyaline Cast (Auto) Urine RBC (NOT SEEN) /HPF Urine WBC (NOT SEEN) /HPF Ur Squamous Epith Cells (NEGATIVE) /HPF Urine Bacteria (NEGATIVE) /HPF Urine Mucus (NEGATIVE) /LPF Urine Opiates Screen (NEGATIVE) Ur Buprenorphine Scrn (NEGATIVE) Ur Oxycodone Screen (NEGATIVE) Ur EDDP (Meth Metab) (NEGATIVE) Urine Methadone Screen (NEGATIVE) Ur Barbituates Screen (NEGATIVE) Ur Tricyclics Screen (NEGATIVE) Ur Phencyclidine Scrn (NEGATIVE) Ur Amphetamines Screen (NEGATIVE) U Methamphetamines Scrn (NEGATIVE) Urine MDMA Screen (NEGATIVE) U Benzodiazepines Scrn (NEGATIVE) Urine Cocaine Screen (NEGATIVE) U Marijuana (THC) Screen (NEGATIVE) Ethyl Alcohol (0-3) mg/dL SARS CoV-2 RNA Rapid JEAN-PAUL Positive H (NEGATIVE) 08/10/20 08/10/20 08/10/20 Range/Units 11:21 11:21 11:21 WBC (4.0-10.0) x10^3/uL RBC (4.00-5.50) x10^6/uL Hgb (12.0-16.0) g/dL Hct (33.0-47.0) % MCV (78.0-93.0) fL MCH (26.0-32.0) pg MCHC (32.0-36.0) g/dL RDW Coeff of [place] (10.0-15.0) % Plt Count (130-400) x10^3/uL Add Manual Diff Neutrophils % (Manual) (50-80) % Band Neutrophils % (0-6) % Lymphocytes % (Manual) (25-50) % Reactive Lymphs % (0) % Monocytes % (Manual) (2-11) % Eosinophils % (Manual) (0-4) % Platelet Estimate PT (9.5-12.3) SEC INR (2.0-3.5) D-Dimer, Quantitative 0.54 (<=0.58) mg/LFEU Sodium 135 L (136-145) mmol/L Potassium 3.5 (3.5-5.1) mmol/L Chloride 99 (98-107) mmol/L Carbon Dioxide 19 L (21-32) mmol/L Anion Gap 20.5 H (10-20) mmol/L BUN 12 (7-18) mg/dL Creatinine 0.8 (0.55-1.02) mg/dL Est Cr Clr Drug Dosing 98.07 mL/min Estimated GFR (MDRD) > 60 Glucose 326 H (74-106) mg/dL Lactic Acid 2.5 H* (0.4-2.0) mmol/L Calcium 8.4 L (8.5-10.1) mg/dL Corrected Calcium 8.80 (8.5-10.1) mg/dL Ferritin (8-252) ng/mL Total Bilirubin 1.1 H (0.2-1.0) mg/dL AST 17 (15-37) U/L ALT 24 (14-59) U/L Alkaline Phosphatase 89 (46-116) U/L Troponin I < 0.017 (<=0.056) ng/mL Total Protein 8.1 (6.4-8.2) g/dL Albumin 3.5 (3.4-5.0) g/dL Globulin 4.6 Albumin/Globulin Ratio 0.76 Urine Color (YELLOW) Urine Appearance (CLEAR) Urine pH (5.0-8.0) Ur Specific Uriah Urine Protein (NEGATIVE) mg/dL Urine Glucose (UA) (NEGATIVE) mg/dL Urine Ketones (NEGATIVE) mg/dL Urine Occult Blood (NEGATIVE) Urine Nitrite (NEGATIVE) Urine Bilirubin (NEGATIVE) Urine Urobilinogen (0.2) EU/dL Ur Leukocyte Esterase (NEGATIVE) U Hyaline Cast (Auto) Urine RBC (NOT SEEN) /HPF Urine WBC (NOT SEEN) /HPF Ur Squamous Epith Cells (NEGATIVE) /HPF Urine Bacteria (NEGATIVE) /HPF Urine Mucus (NEGATIVE) /LPF Urine Opiates Screen (NEGATIVE) Ur Buprenorphine Scrn (NEGATIVE) Ur Oxycodone Screen (NEGATIVE) Ur EDDP (Meth Metab) (NEGATIVE) Urine Methadone Screen (NEGATIVE) Ur Barbituates Screen (NEGATIVE) Ur Tricyclics Screen (NEGATIVE) Ur Phencyclidine Scrn (NEGATIVE) Ur Amphetamines Screen (NEGATIVE) U Methamphetamines Scrn (NEGATIVE) Urine MDMA Screen (NEGATIVE) U Benzodiazepines Scrn (NEGATIVE) Urine Cocaine Screen (NEGATIVE) U Marijuana (THC) Screen (NEGATIVE) Ethyl Alcohol (0-3) mg/dL SARS CoV-2 RNA Rapid JEAN-PAUL (NEGATIVE) 08/10/20 08/10/20 08/10/20 Range/Units 11:21 11:21 11:38 WBC (4.0-10.0) x10^3/uL RBC (4.00-5.50) x10^6/uL Hgb (12.0-16.0) g/dL Hct (33.0-47.0) % MCV (78.0-93.0) fL MCH (26.0-32.0) pg MCHC (32.0-36.0) g/dL RDW Coeff of [place] (10.0-15.0) % Plt Count (130-400) x10^3/uL Add Manual Diff Neutrophils % (Manual) (50-80) % Band Neutrophils % (0-6) % Lymphocytes % (Manual) (25-50) % Reactive Lymphs % (0) % Monocytes % (Manual) (2-11) % Eosinophils % (Manual) (0-4) % Platelet Estimate PT (9.5-12.3) SEC INR (2.0-3.5) D-Dimer, Quantitative (<=0.58) mg/LFEU Sodium (136-145) mmol/L Potassium (3.5-5.1) mmol/L Chloride (98-107) mmol/L Carbon Dioxide (21-32) mmol/L Anion Gap (10-20) mmol/L BUN (7-18) mg/dL Creatinine (0.55-1.02) mg/dL Est Cr Clr Drug Dosing mL/min Estimated GFR (MDRD) Glucose (74-106) mg/dL Lactic Acid (0.4-2.0) mmol/L Calcium (8.5-10.1) mg/dL Corrected Calcium (8.5-10.1) mg/dL Ferritin 284 H (8-252) ng/mL Total Bilirubin (0.2-1.0) mg/dL AST (15-37) U/L ALT (14-59) U/L Alkaline Phosphatase (46-116) U/L Troponin I (<=0.056) ng/mL Total Protein (6.4-8.2) g/dL Albumin (3.4-5.0) g/dL Globulin Albumin/Globulin Ratio Urine Color Dark yellow H (YELLOW) Urine Appearance Slightly cloudy H (CLEAR) Urine pH 5.5 (5.0-8.0) Ur Specific Uriah >=1.030 Urine Protein >=300 H (NEGATIVE) mg/dL Urine Glucose (UA) 500 H (NEGATIVE) mg/dL Urine Ketones 80 H (NEGATIVE) mg/dL Urine Occult Blood Trace-lysed H (NEGATIVE) Urine Nitrite Negative (NEGATIVE) Urine Bilirubin Small H (NEGATIVE) Urine Urobilinogen 0.2 (0.2) EU/dL Ur Leukocyte Esterase Negative (NEGATIVE) U Hyaline Cast (Auto) Moderate Urine RBC 5-10 H (NOT SEEN) /HPF Urine WBC 0-5 (NOT SEEN) /HPF Ur Squamous Epith Cells Moderate H (NEGATIVE) /HPF Urine Bacteria Not seen (NEGATIVE) /HPF Urine Mucus Not seen (NEGATIVE) /LPF Urine Opiates Screen (NEGATIVE) Ur Buprenorphine Scrn (NEGATIVE) Ur Oxycodone Screen (NEGATIVE) Ur EDDP (Meth Metab) (NEGATIVE) Urine Methadone Screen (NEGATIVE) Ur Barbituates Screen (NEGATIVE) Ur Tricyclics Screen (NEGATIVE) Ur Phencyclidine Scrn (NEGATIVE) Ur Amphetamines Screen (NEGATIVE) U Methamphetamines Scrn (NEGATIVE) Urine MDMA Screen (NEGATIVE) U Benzodiazepines Scrn (NEGATIVE) Urine Cocaine Screen (NEGATIVE) U Marijuana (THC) Screen (NEGATIVE) Ethyl Alcohol < 3 (0-3) mg/dL SARS CoV-2 RNA Rapid JEAN-PAUL (NEGATIVE) 08/10/20 Range/Units 11:38 WBC (4.0-10.0) x10^3/uL RBC (4.00-5.50) x10^6/uL Hgb (12.0-16.0) g/dL Hct (33.0-47.0) % MCV (78.0-93.0) fL MCH (26.0-32.0) pg MCHC (32.0-36.0) g/dL RDW Coeff of [place] (10.0-15.0) % Plt Count (130-400) x10^3/uL Add Manual Diff Neutrophils % (Manual) (50-80) % Band Neutrophils % (0-6) % Lymphocytes % (Manual) (25-50) % Reactive Lymphs % (0) % Monocytes % (Manual) (2-11) % Eosinophils % (Manual) (0-4) % Platelet Estimate PT (9.5-12.3) SEC INR (2.0-3.5) D-Dimer, Quantitative (<=0.58) mg/LFEU Sodium (136-145) mmol/L Potassium (3.5-5.1) mmol/L Chloride (98-107) mmol/L Carbon Dioxide (21-32) mmol/L Anion Gap (10-20) mmol/L BUN (7-18) mg/dL Creatinine (0.55-1.02) mg/dL Est Cr Clr Drug Dosing mL/min Estimated GFR (MDRD) Glucose (74-106) mg/dL Lactic Acid (0.4-2.0) mmol/L Calcium (8.5-10.1) mg/dL Corrected Calcium (8.5-10.1) mg/dL Ferritin (8-252) ng/mL Total Bilirubin (0.2-1.0) mg/dL AST (15-37) U/L ALT (14-59) U/L Alkaline Phosphatase (46-116) U/L Troponin I (<=0.056) ng/mL Total Protein (6.4-8.2) g/dL Albumin (3.4-5.0) g/dL Globulin Albumin/Globulin Ratio Urine Color (YELLOW) Urine Appearance (CLEAR) Urine pH (5.0-8.0) Ur Specific Uriah Urine Protein (NEGATIVE) mg/dL Urine Glucose (UA) (NEGATIVE) mg/dL Urine Ketones (NEGATIVE) mg/dL Urine Occult Blood (NEGATIVE) Urine Nitrite (NEGATIVE) Urine Bilirubin (NEGATIVE) Urine Urobilinogen (0.2) EU/dL Ur Leukocyte Esterase (NEGATIVE) U Hyaline Cast (Auto) Urine RBC (NOT SEEN) /HPF Urine WBC (NOT SEEN) /HPF Ur Squamous Epith Cells (NEGATIVE) /HPF Urine Bacteria (NEGATIVE) /HPF Urine Mucus (NEGATIVE) /LPF Urine Opiates Screen Negative (NEGATIVE) Ur Buprenorphine Scrn Negative (NEGATIVE) Ur Oxycodone Screen Negative (NEGATIVE) Ur EDDP (Meth Metab) Negative (NEGATIVE) Urine Methadone Screen Negative (NEGATIVE) Ur Barbituates Screen Negative (NEGATIVE) Ur Tricyclics Screen Negative (NEGATIVE) Ur Phencyclidine Scrn Negative (NEGATIVE) Ur Amphetamines Screen Negative (NEGATIVE) U Methamphetamines Scrn Negative (NEGATIVE) Urine MDMA Screen Negative (NEGATIVE) U Benzodiazepines Scrn Negative (NEGATIVE) Urine Cocaine Screen Negative (NEGATIVE) U Marijuana (THC) Screen Negative (NEGATIVE) Ethyl Alcohol (0-3) mg/dL SARS CoV-2 RNA Rapid JEANP-AUL (NEGATIVE) Meds: Medications Generic Name Dose Route Start Last Admin Trade Name Freq PRN Reason Stop Dose Admin Acetaminophen 650 mg 08/10/20 13:25 08/11/20 22:54 Tylenol PO 650 mg Q4H PRN Administration Pain (Mild 1-3)/fever Albuterol/Ipratropium 3 ml 08/10/20 13:25 08/11/20 22:30 Duoneb 3.0-0.5 Mg/3 Ml NEB 3 ml Q4H PRN Administration dyspnea/wheezing Atorvastatin Calcium 10 mg 08/10/20 20:00 08/11/20 21:00 Lipitor PO 10 mg BEDTIME TALA Administration Azithromycin 500 mg 08/10/20 13:30 08/12/20 07:58 Zithromax PO 500 mg DAILY TALA Administration Benzonatate 100 mg 08/11/20 09:00 08/11/20 10:56 Tessalon Perles PO 100 mg TID PRN Administration Cough Ceftriaxone Sodium 1 gm 08/11/20 12:00 08/11/20 12:02 Rocephin IVPUSH 1 gm Q24H TALA Administration Dextrose/Water 50 ml 08/10/20 18:01 Dextrose 50% In Water IV ASDIRECTED PRN Hypoglycemia Flumazenil 0.2 mg 08/10/20 13:33 Romazicon IVPUSH ASDIRECTED PRN Respiratory Depression Glucagon 1 mg 08/10/20 18:01 Glucagen IM ASDIRECTED PRN Hypoglycemia Glyburide 1.25 mg 08/10/20 14:30 08/12/20 08:00 Micronase PO 1.25 mg DAILY TALA Administration Sodium Chloride 1,000 mls @ 125 mls/hr 08/10/20 19:30 08/12/20 05:51 Normal Saline IV 125 mls/hr ASDIRECTED TALA Administration Ibuprofen 400 mg 08/10/20 13:25 Motrin PO Q6H PRN Pain (mild 1-3) Insulin Human Regular 0 unit 08/10/20 18:03 08/12/20 08:01 Humulin R SUBCUT 1 units TIDMEALS TALA Administration Protocol Lisinopril 40 mg 08/10/20 13:45 08/12/20 07:58 Prinivil PO 40 mg DAILY TALA Administration Lorazepam 1 mg 08/10/20 13:33 08/11/20 22:55 Ativan IVPUSH 1 mg Q6H PRN Administration Anxiety Metformin HCl 250 mg 08/10/20 14:30 08/12/20 08:00 Glucophage PO 250 mg DAILY TALA Administration Ondansetron HCl 4 mg 08/10/20 13:25 Zofran Odt PO Q4H PRN nausea, able to take PO Ondansetron HCl 4 mg 08/10/20 13:25 08/11/20 01:59 Zofran IV 4 mg Q4H PRN Administration Nausea/Vomiting Sodium Chloride 10 ml 08/10/20 10:52 08/11/20 03:15 Saline Flush FLUSH 10 ml ASDIRECTED PRN Administration Keep Vein Open Discontinued Medications Generic Name Dose Route Start Last Admin Trade Name Freq PRN Reason Stop Dose Admin Albuterol/Ipratropium 3 ml 08/10/20 10:53 08/10/20 15:50 Duoneb 3.0-0.5 Mg/3 Ml NEB 08/10/20 10:54 Not Given ONETIME ONE Albuterol/Ipratropium 3 ml 08/10/20 10:54 08/10/20 10:50 Duoneb 3.0-0.5 Mg/3 Ml NEB 08/10/20 10:55 3 ml ONETIME ONE Administration Ceftriaxone Sodium 1 gm 08/10/20 12:40 08/10/20 12:45 Rocephin IVPUSH 08/10/20 12:41 1 gm STAT ONE Administration Dexamethasone 8 mg 08/10/20 11:10 08/10/20 11:18 Dexamethasone IV 08/10/20 11:11 Not Given ONETIME ONE Dexamethasone Confirm 08/10/20 11:23 08/10/20 11:16 Decadron Administered 08/10/20 11:24 8 mg Dose Administration 8 mg .ROUTE .STK-MED ONE Glyburide 1.25 mg 08/10/20 13:45 08/10/20 15:50 Micronase PO Not Given DAILY TALA Sodium Chloride 500 mls @ 500 mls/hr 08/10/20 18:07 08/10/20 18:21 Normal Saline IV 08/10/20 19:06 500 mls/hr ONETIME ONE Administration Insulin Human Regular 15 unit 08/10/20 20:22 08/10/20 20:33 Humulin R SUBCUT 08/10/20 20:23 15 units ONETIME STA Administration Lorazepam 1 mg 08/10/20 11:39 08/10/20 11:43 Ativan IVPUSH 08/10/20 11:40 1 mg STAT ONE Administration Lorazepam Confirm 08/10/20 11:50 08/10/20 12:37 Ativan Administered 08/10/20 11:51 Not Given Dose 2 mg .ROUTE .STK-MED ONE Metformin HCl 250 mg 08/11/20 08:00 Glucophage PO DAILY TALA Ondansetron HCl 4 mg 08/10/20 10:53 08/10/20 11:18 Zofran IVPUSH 08/10/20 10:54 4 mg ONETIME ONE Administration Departure - Departure Disposition: Refer to Observation Condition: Good Clinical Impression: COVID-19, Anxiety, Hx of diabetes mellitus, Elevated lactic acid level - Discharge Information Sepsis Event Note (ED) - Evaluation Sepsis Screening Result: No Definite Risk - Problem List & Annotations (1) COVID-19 SNOMED Code(s): 039375602 Code(s): U07.1 - COVID-19 Status: Acute Current Visit: Yes
--- NOTE | 2020-08-12 09:58 | PCM.DCSUM1 ---
Discharge Summary - Hospital Course Free Text/Narrative:: Pt. is feeling much improved today. Appetite has been adequate. She is still having paroxysms of cough but these have improved with tessalon and inhaler. Denies any significant shortness of breath. Denies any abdominal pain. No nausea, vomiting, or diarrhea. Denies any chest pain. She has been using incentive spirometry. Blood sugar was 208 this AM. No further lab studies were ordered this AM, as the patient was feeling better and lactic acid was in normal range. She is off O2. Decision was made to discharge the patient this AM. Diagnosis: Stroke: No - Discharge Data Discharge Date: 08/12/20 Discharge Disposition: Home, Self-Care 01 Condition: Good - Referral to Home Health Primary Care Physician: Shagufta Romero MD - Discharge Diagnosis/Problem(s) (1) COVID-19 SNOMED Code(s): 849027364 ICD Code: U07.1 - COVID-19 Status: Acute Current Visit: Yes (2) Pneumonia SNOMED Code(s): 576612495 ICD Code: J18.9 - PNEUMONIA, UNSPECIFIED ORGANISM Status: Acute Current Visit: Yes - Discharge Plan Prescriptions/Med Rec: Azithromycin [Zithromax] 500 mg PO DAILY #3 tablet Home Medications: Home Meds Lisinopril 40 mg PO DAILY 04/10/17 [History] atorvaSTATin [Lipitor] 10 mg PO BEDTIME 04/09/20 [History] glyBURIDE/Metformin HCl [Glyburid-Metformin 1.25-250 mg] 1 each PO DAILY 04/09/20 [History] Albuterol [Ventolin HFA] 2 puff INH Q4H PRN #1 puff 06/27/20 [Rx] Ibuprofen 600 mg PO Q6H PRN 08/10/20 [History] Azithromycin [Zithromax] 500 mg PO DAILY #3 tablet 08/12/20 [Rx] Ibuprofen [Motrin] 400 mg PO Q6H PRN tablet 08/12/20 [Rx] Forms: ED Department Discharge Referrals: PCP,Not In Area [Ordering Only Provider] - - Discharge Summary/Plan Comment DC Time >30 min.: Yes Discharge Summary/Plan Comment: Continue with current medications. Will finish course of azithromycin. Continue tessalon perles. Her prescription for Albuterol was refilled. She was sent home with incentive spirometry. Recheck in clinic in approx. 10 days sooner if not improving. - General Info Date of Service: 08/12/20 Functional Status: Reports: Pain Controlled, Tolerating Diet - Review of Systems General: Reports: No Symptoms HEENT: Reports: No Symptoms Pulmonary: Reports: No Symptoms Cardiovascular: Reports: No Symptoms Gastrointestinal: Reports: No Symptoms Genitourinary: Reports: No Symptoms Musculoskeletal: Reports: No Symptoms Skin: Reports: No Symptoms Neurological: Reports: No Symptoms Psychiatric: Reports: No Symptoms - Patient Data Vitals - Most Recent: Last Vital Signs Temp 36.5 C 08/12/20 05:56 Pulse 75 08/12/20 05:56 Resp 18 08/12/20 05:56 BP 124/62 08/12/20 07:58 Pulse Ox 96 08/12/20 06:23 Weight - Most Recent: 93.894 kg I&O - Last 24 hours: Intake & Output 08/11/20 08/12/20 08/12/20 22:59 06:59 14:59 Intake Total 2760 1400 Output Total 800 Balance 2760 600 Lab Results - Last 24 hrs: Laboratory Results - last 24 hr 08/11/20 08/11/20 08/11/20 Range/Units 05:51 10:56 17:53 POC Glucose 229 H 209 H 188 H (74-106) mg/dL 08/11/20 08/12/20 Range/Units 20:58 05:55 POC Glucose 293 H 208 H (74-106) mg/dL CHAD Results - Last 24 hrs: Microbiology 08/10/20 11:26 Aerobic Blood Culture - Preliminary Blood - Venous - Lab Draw NO GROWTH AFTER 1 DAY Anaerobic Blood Culture - Preliminary NO GROWTH AFTER 1 DAY 08/10/20 11:21 Aerobic Blood Culture - Preliminary Blood - Venous NO GROWTH AFTER 1 DAY Anaerobic Blood Culture - Final Med Orders - Current: Current Medications Acetaminophen (Tylenol) 650 mg PO Q4H PRN PRN Reason: Pain (Mild 1-3)/fever Last Admin: 08/11/20 22:54 Dose: 650 mg Documented by: Albuterol/Ipratropium (Duoneb 3.0-0.5 Mg/3 Ml) 3 ml NEB Q4H PRN PRN Reason: dyspnea/wheezing Last Admin: 08/11/20 22:30 Dose: 3 ml Documented by: Atorvastatin Calcium (Lipitor) 10 mg PO BEDTIME [facility] Last Admin: 08/11/20 21:00 Dose: 10 mg Documented by: Azithromycin (Zithromax) 500 mg PO DAILY [facility] Last Admin: 08/12/20 07:58 Dose: 500 mg Documented by: Benzonatate (Tessalon Perles) 100 mg PO TID PRN PRN Reason: Cough Last Admin: 08/11/20 10:56 Dose: 100 mg Documented by: Ceftriaxone Sodium (Rocephin) 1 gm IVPUSH Q24H [facility] Last Admin: 08/11/20 12:02 Dose: 1 gm Documented by: Dextrose/Water (Dextrose 50% In Water) 50 ml IV ASDIRECTED PRN PRN Reason: Hypoglycemia Flumazenil (Romazicon) 0.2 mg IVPUSH ASDIRECTED PRN PRN Reason: Respiratory Depression Glucagon (Glucagen) 1 mg IM ASDIRECTED PRN PRN Reason: Hypoglycemia Glyburide (Micronase) 1.25 mg PO DAILY [facility] Last Admin: 08/12/20 08:00 Dose: 1.25 mg Documented by: Sodium Chloride (Normal Saline) 1,000 mls @ 125 mls/hr IV ASDIRECTED [facility] Last Admin: 08/12/20 05:51 Dose: 125 mls/hr Documented by: Ibuprofen (Motrin) 400 mg PO Q6H PRN PRN Reason: Pain (mild 1-3) Insulin Human Regular (Humulin R) 0 unit SUBCUT TIDMEALS [facility]; Protocol Last Admin: 08/12/20 08:01 Dose: 1 units Documented by: Lisinopril (Prinivil) 40 mg PO DAILY [facility] Last Admin: 08/12/20 07:58 Dose: 40 mg Documented by: Lorazepam (Ativan) 1 mg IVPUSH Q6H PRN PRN Reason: Anxiety Last Admin: 08/11/20 22:55 Dose: 1 mg Documented by: Metformin HCl (Glucophage) 250 mg PO DAILY [facility] Last Admin: 08/12/20 08:00 Dose: 250 mg Documented by: Ondansetron HCl (Zofran Odt) 4 mg PO Q4H PRN PRN Reason: nausea, able to take PO Ondansetron HCl (Zofran) 4 mg IV Q4H PRN PRN Reason: Nausea/Vomiting Last Admin: 08/11/20 01:59 Dose: 4 mg Documented by: Sodium Chloride (Saline Flush) 10 ml FLUSH ASDIRECTED PRN PRN Reason: Keep Vein Open Last Admin: 08/11/20 03:15 Dose: 10 ml Documented by: Discontinued Medications Albuterol/Ipratropium (Duoneb 3.0-0.5 Mg/3 Ml) 3 ml NEB ONETIME ONE Stop: 08/10/20 10:54 Last Admin: 08/10/20 15:50 Dose: Not Given Documented by: Albuterol/Ipratropium (Duoneb 3.0-0.5 Mg/3 Ml) 3 ml NEB ONETIME ONE Stop: 08/10/20 10:55 Last Admin: 08/10/20 10:50 Dose: 3 ml Documented by: Ceftriaxone Sodium (Rocephin) 1 gm IVPUSH STAT ONE Stop: 08/10/20 12:41 Last Admin: 08/10/20 12:45 Dose: 1 gm Documented by: Dexamethasone (Dexamethasone) 8 mg IV ONETIME ONE Stop: 08/10/20 11:11 Last Admin: 08/10/20 11:18 Dose: Not Given Documented by: Dexamethasone (Decadron) Confirm Administered Dose 8 mg .ROUTE .STK-MED ONE Stop: 08/10/20 11:24 Last Admin: 08/10/20 11:16 Dose: 8 mg Documented by: Glyburide (Micronase) 1.25 mg PO DAILY [facility] Last Admin: 08/10/20 15:50 Dose: Not Given Documented by: Sodium Chloride (Normal Saline) 500 mls @ 500 mls/hr IV ONETIME ONE Stop: 08/10/20 19:06 Last Admin: 08/10/20 18:21 Dose: 500 mls/hr Documented by: Insulin Human Regular (Humulin R) 15 unit SUBCUT ONETIME STA Stop: 08/10/20 20:23 Last Admin: 08/10/20 20:33 Dose: 15 units Documented by: Lorazepam (Ativan) 1 mg IVPUSH STAT ONE Stop: 08/10/20 11:40 Last Admin: 08/10/20 11:43 Dose: 1 mg Documented by: Lorazepam (Ativan) Confirm Administered Dose 2 mg .ROUTE .STK-MED ONE Stop: 08/10/20 11:51 Last Admin: 08/10/20 12:37 Dose: Not Given Documented by: Metformin HCl (Glucophage) 250 mg PO DAILY [facility] Ondansetron HCl (Zofran) 4 mg IVPUSH ONETIME ONE Stop: 08/10/20 10:54 Last Admin: 08/10/20 11:18 Dose: 4 mg Documented by: - Exam General: Reports: Alert, Oriented HEENT: Reports: Pupils Equal, Pupils Reactive, EOMI Neck: Reports: Supple Lungs: Reports: Normal Respiratory Effort, Decreased Breath Sounds Cardiovascular: Reports: Regular Rate, Regular Rhythm GI/Abdominal Exam: Normal Bowel Sounds, Soft, Non-Tender, No Distention, No Mass (Female) Exam: Deferred Rectal (Female) Exam: Deferred Back Exam: Reports: Normal Inspection, Full Range of Motion Extremities: Normal Inspection, Normal Range of Motion, Non-Tender, No Pedal Edema, Normal Capillary Refill Skin: Reports: Warm, Dry, Intact Psy/Mental Status: Reports: Alert, Normal Affect, Normal Mood
== END 2020-08-12 10:30 | disposition home or self-care (01) ==
LOC: VM.ED 10:43 → VM.MS 13:16
PROVIDERS: ADMIT Nurse Practitioner Family; ATTEND Nurse Practitioner Family
DX: U07.1 COVID-19 (principal); J12.89 Other viral pneumonia; E78.00 Pure hypercholesterolemia, unspecified; I10 Essential (primary) hypertension; F41.9 Anxiety disorder, unspecified; F32.9 Major depressive disorder, single episode, unspecified; E11.9 Type 2 diabetes mellitus without complications; F17.210 Nicotine dependence, cigarettes, uncomplicated; Z79.84 Long term (current) use of oral hypoglycemic drugs; Z88.5 Allergy status to narcotic agent; Z88.0 Allergy status to penicillin; Z91.018 Allergy to other foods; Z79.899 Other long term (current) drug therapy
CPT/HCPCS: 36415; 71045; 80048; 80053; 80305-QW; 80307; 81001; 82728; 82803; 82962; 83605; 84484; 85025; 85379; 85610; 87040; 93005; 94640; 96374; 96375; 96376; 99217; 99220; 99225; 99285-25; A9270-GY; G0378; J0696; J1100; J1815-GY; J2060; J2405; J7030; J7040; J7620-GY; U0002

== ENCOUNTER 2021-05-11 09:22 | Emergency (ER) | payer SELFPAY ==
[2021-05-11 09:35] VITALS: BP 130/106; PULSE 94
[2021-05-11] MEDS ORDERED: Ondansetron 4 MG/2 ML SDV IV ONE (09:41)
[2021-05-11] MEDS ORDERED: Sodium Chloride 0.9% 10 ML Syringe FLUSH PRN (09:41)
[2021-05-11] MEDS ORDERED: diphenhydrAMINE 50 MG/ML SDV IVPUSH ONE (09:41)
[2021-05-11] MEDS ORDERED: Lactated Ringers 1,000 ML IV ONE ×2 (09:41→10:53)
--- NOTE | 2021-05-11 09:57 | EDM.PDOC ---
ED HPI GENERAL MEDICAL PROBLEM - General Chief Complaint: Abdominal Pain Stated Complaint: abd pain Time Seen by Provider: 05/11/21 09:45 Source of Information: Reports: Patient History Limitations: Reports: No Limitations - History of Present Illness INITIAL COMMENTS - FREE TEXT/NARRATIVE: Patient comes emergency department today from the clinic for further evaluation of abdominal pain. This patient went to the emergency department today because she has had abdominal pain nausea and vomiting for the past 3 days. She was given some Toradol in the clinic and she did not have any improvement of her symptoms she had no laboratory evaluation her urine sample and she was sent over to the ER. Upon arrival she complains of abdominal pain bloating and distention. Nausea and vomiting. No chest pain no shortness of breath or difficulty breathing. No cough or congestion. No fever no chills. She complains of bilateral flank pain. She also complains of urinary frequency and dysuria. No hematuria. She has had some loose stools not really diarrhea stools. No recent antibiotic. She has had a hysterectomy in the past. She is a diabetic she has not checked her blood sugar in many days. She has not taken her medicine in over a week. To include glyburide and Metformin. She has had her gallbladder removed in the past. Left Pelvic Pain Score (Numeric/FACES): 8 - Related Data Allergies Allergy/AdvReac Type Severity Reaction Status Date / Time codeine Allergy Rash Verified 05/11/21 09:41 Penicillins Allergy Rash Verified 05/11/21 09:41 blueberries Allergy Itching Uncoded 05/11/21 09:41 Home Meds: Home Meds Lisinopril 40 mg PO DAILY 04/10/17 [History] atorvaSTATin [Lipitor] 10 mg PO BEDTIME 04/09/20 [History] glyBURIDE/Metformin HCl [Glyburid-Metformin 1.25-250 mg] 1 each PO DAILY 04/09/20 [History] Albuterol [Ventolin HFA] 2 puff INH Q4H PRN #1 puff 06/27/20 [Rx] Ibuprofen 600 mg PO Q6H PRN 08/10/20 [History] Ondansetron [Ondansetron Odt] 4 mg PO TID PRN #12 tab.rapdis 05/11/21 [Rx] glyBURIDE/Metformin HCl [Glyburid-Metformin 1.25-250 mg] 1 each PO DAILY #20 tablet 05/11/21 [Rx] Past Medical History Cardiovascular History: Reports: High Cholesterol, Hypertension Psychiatric History: Reports: Anxiety, Depression Endocrine/Metabolic History: Reports: Diabetes, Type II - Infectious Disease History Infectious Disease History: Reports: Novel Coronavirus - Past Surgical History HEENT Surgical History: Reports: Adenoidectomy, Tonsillectomy GI Surgical History: Reports: Cholecystectomy Female Surgical History: Reports: Hysterectomy Social & Family History - Family History Family Medical History: No Pertinent Family History - Caffeine Use Caffeine Use: Reports: Coffee, Soda ED ROS GENERAL - Review of Systems Review Of Systems: Comprehensive ROS is negative, except as noted in HPI. ED EXAM, GI/ABD - Physical Exam Exam: See Below Exam Limited By: No Limitations General Appearance: Alert, WD/WN, Mild Distress (She appears mildly uncomfortable and moving about the bed.) Eyes: Bilateral: EOMI Ears: Normal External Exam Nose: Normal Inspection Throat/Mouth: Normal Inspection Head: Atraumatic, Normocephalic Neck: Normal Inspection, Supple, Non-Tender, Full Range of Motion Respiratory/Chest: No Respiratory Distress, Lungs Clear, Normal Breath Sounds, No Accessory Muscle Use, Chest Non-Tender Cardiovascular: Normal Peripheral Pulses, Regular Rate, Rhythm, No Edema GI/Abdominal Exam: Normal Bowel Sounds, Soft, Non-Tender, Distended. No: Guarding, Rigid, Rebound, Tender, Hernia (Female) Exam: Deferred Rectal (Female) Exam: Deferred Back Exam: Normal Inspection, Full Range of Motion Extremities: Normal Inspection, Normal Range of Motion, No Pedal Edema, Normal Capillary Refill Neurological: Alert, Oriented, Normal Cognition, Normal Gait, No Motor/Sensory Deficits Psychiatric: Normal Affect, Normal Mood Skin Exam: Warm, Dry, Intact, Normal Color, No Rash Course - Vital Signs Last Recorded V/S: Last Vital Signs Temp 98.2 F 05/11/21 09:25 Pulse 94 05/11/21 09:25 Resp 18 05/11/21 09:25 BP 130/106 H 05/11/21 09:25 Pulse Ox 98 05/11/21 09:25 - Orders/Labs/Meds Orders: Active Orders 24 hr Category Date Time Status B-HYDROXYBUTYRATE [REF] Stat Lab 05/11/21 09:48 Received Peripheral IV Insertion Adult [OM.PC] Stat Oth 05/11/21 09:40 Ordered Labs: Laboratory Tests 05/11/21 05/11/21 05/11/21 Range/Units 09:41 09:41 09:48 WBC 11.1 H (4.0-10.0) x10^3/uL RBC 5.69 H (4.00-5.50) x10^6/uL Hgb 16.1 H (12.0-16.0) g/dL Hct 45.6 (33.0-47.0) % MCV 80.1 (78.0-93.0) fL MCH 28.3 (26.0-32.0) pg MCHC 35.3 (32.0-36.0) g/dL RDW Coeff of [place] 12.5 (10.0-15.0) % Plt Count 291 (130-400) x10^3/uL Immature Gran % (Auto) 0.40 (0.00-0.43) % Neut % (Auto) 59.3 (50.0-80.0) % Lymph % (Auto) 33.2 (25.0-50.0) % Hitchcock % (Auto) 5.2 (2.0-11.0) % Eos % (Auto) 1.6 (0.0-4.0) % Baso % (Auto) 0.3 (0.2-1.2) % Neut # (Auto) 6.6 (1.8-7.7) x10^3/uL Lymph # (Auto) 3.7 (1.0-4.8) x10^3/uL Hitchcock # (Auto) 0.6 (0.0-0.8) x10^3/uL Eos # (Auto) 0.2 (0.0-0.5) x10^3/uL Baso # (Auto) 0.0 (0.0-0.2) x10^3/uL Immature Gran # (Auto) 0.04 (0.00-0.07) x10^3/uL POC VBG pH (7.33-7.43) pH POC VBG pCO2 (41-51) mmHg POC VBG pO2 mmHg POC VBG HCO3 (22-29) mmol/L POC Venous O2 Sat % VBG Base Excess (-(2)-3) mmol/L POC FiO2 Sodium (136-145) mmol/L Potassium (3.5-5.1) mmol/L Chloride (98-107) mmol/L Carbon Dioxide (21-32) mmol/L POC Venous Total CO2 (23-30) mmol/L Anion Gap (5-15) mmol/L BUN (7-18) mg/dL Creatinine (0.55-1.02) mg/dL Est Cr Clr Drug Dosing Estimated GFR (MDRD) Glucose (70-99) mg/dL Lactic Acid (0.4-2.0) mmol/L Calcium (8.5-10.1) mg/dL Corrected Calcium (8.5-10.1) mg/dL Total Bilirubin (0.2-1.0) mg/dL AST (15-37) U/L ALT (14-59) U/L Alkaline Phosphatase (46-116) U/L C-Reactive Protein (<=0.9) mg/dL Total Protein (6.4-8.2) g/dL Albumin (3.4-5.0) g/dL Globulin Albumin/Globulin Ratio Lipase (73-393) U/L Urine Color Yellow (YELLOW) Urine Appearance Clear (CLEAR) Urine pH 5.5 (5.0-8.0) Ur Specific [place] 1.025 Urine Protein 100 H (NEGATIVE) mg/dL Urine Glucose (UA) >=1000 H (NEGATIVE) mg/dL Urine Ketones 15 H (NEGATIVE) mg/dL Urine Occult Blood Negative (NEGATIVE) Urine Nitrite Negative (NEGATIVE) Urine Bilirubin Negative (NEGATIVE) Urine Urobilinogen 0.2 (0.2) EU/dL Ur Leukocyte Esterase Negative (NEGATIVE) Urine RBC 0-5 (NOT SEEN) /HPF Urine WBC 0-5 (NOT SEEN) /HPF Ur Squamous Epith Cells Moderate H (NOT SEEN) /HPF Urine Bacteria Not seen (NOT SEEN) /HPF Urine Mucus Not seen (NOT SEEN) /LPF Urine HCG, Qual Negative (NEGATIVE) 05/11/21 05/11/21 05/11/21 Range/Units 09:48 09:48 10:17 WBC (4.0-10.0) x10^3/uL RBC (4.00-5.50) x10^6/uL Hgb (12.0-16.0) g/dL Hct (33.0-47.0) % MCV (78.0-93.0) fL MCH (26.0-32.0) pg MCHC (32.0-36.0) g/dL RDW Coeff of [place] (10.0-15.0) % Plt Count (130-400) x10^3/uL Immature Gran % (Auto) (0.00-0.43) % Neut % (Auto) (50.0-80.0) % Lymph % (Auto) (25.0-50.0) % Hitchcock % (Auto) (2.0-11.0) % Eos % (Auto) (0.0-4.0) % Baso % (Auto) (0.2-1.2) % Neut # (Auto) (1.8-7.7) x10^3/uL Lymph # (Auto) (1.0-4.8) x10^3/uL Hitchcock # (Auto) (0.0-0.8) x10^3/uL Eos # (Auto) (0.0-0.5) x10^3/uL Baso # (Auto) (0.0-0.2) x10^3/uL Immature Gran # (Auto) (0.00-0.07) x10^3/uL POC VBG pH 7.43 (7.33-7.43) pH POC VBG pCO2 34 L (41-51) mmHg POC VBG pO2 58 mmHg POC VBG HCO3 22 (22-29) mmol/L POC Venous O2 Sat 91 % VBG Base Excess -2 (-(2)-3) mmol/L POC FiO2 21 Sodium 136 (136-145) mmol/L Potassium 4.1 (3.5-5.1) mmol/L Chloride 99 (98-107) mmol/L Carbon Dioxide 23 (21-32) mmol/L POC Venous Total CO2 23 (23-30) mmol/L Anion Gap 18.1 H (5-15) mmol/L BUN 10 (7-18) mg/dL Creatinine 0.6 (0.55-1.02) mg/dL Est Cr Clr Drug Dosing TNP Estimated GFR (MDRD) > 60 Glucose 337 H (70-99) mg/dL Lactic Acid 1.6 (0.4-2.0) mmol/L Calcium 9.0 (8.5-10.1) mg/dL Corrected Calcium 9.0 (8.5-10.1) mg/dL Total Bilirubin 1.0 (0.2-1.0) mg/dL AST 22 (15-37) U/L ALT 34 (14-59) U/L Alkaline Phosphatase 106 (46-116) U/L C-Reactive Protein 1.1 H (<=0.9) mg/dL Total Protein 8.0 (6.4-8.2) g/dL Albumin 4.0 (3.4-5.0) g/dL Globulin 4.0 Albumin/Globulin Ratio 1.00 Lipase 147 (73-393) U/L Urine Color (YELLOW) Urine Appearance (CLEAR) Urine pH (5.0-8.0) Ur Specific [place] Urine Protein (NEGATIVE) mg/dL Urine Glucose (UA) (NEGATIVE) mg/dL Urine Ketones (NEGATIVE) mg/dL Urine Occult Blood (NEGATIVE) Urine Nitrite (NEGATIVE) Urine Bilirubin (NEGATIVE) Urine Urobilinogen (0.2) EU/dL Ur Leukocyte Esterase (NEGATIVE) Urine RBC (NOT SEEN) /HPF Urine WBC (NOT SEEN) /HPF Ur Squamous Epith Cells (NOT SEEN) /HPF Urine Bacteria (NOT SEEN) /HPF Urine Mucus (NOT SEEN) /LPF Urine HCG, Qual (NEGATIVE) Meds: Medications Discontinued Medications Generic Name Dose Route Start Last Admin Trade Name Freq PRN Reason Stop Dose Admin Diphenhydramine HCl 25 mg 05/11/21 09:41 05/11/21 10:13 Diphenhydramine 50 Mg/Ml Sdv IVPUSH 05/11/21 09:42 25 mg ONETIME ONE Administration Lactated Ringer's 1,000 mls @ 999 mls/hr 05/11/21 09:41 05/11/21 10:10 Ringers, Lactated IV 05/11/21 10:41 999 mls/hr ONETIME ONE Administration Lactated Ringer's 1,000 mls @ 999 mls/hr 05/11/21 10:53 05/11/21 11:13 Ringers, Lactated IV 05/11/21 11:53 999 mls/hr ONETIME ONE Administration Ondansetron HCl 4 mg 05/11/21 09:41 05/11/21 10:10 Ondansetron 4 Mg/2 Ml Sdv IV 05/11/21 09:42 4 mg ONETIME ONE Administration Polyethylene Glycol 34 gm 05/11/21 11:05 05/11/21 11:13 Polyethylene Glycol 3350 Powder 17 Gm Packet PO 05/11/21 11:06 34 gm ONETIME ONE Administration Sodium Chloride 10 ml 05/11/21 09:41 Sodium Chloride 0.9% 10 Ml Syringe FLUSH ASDIRECTED PRN Keep Vein Open - Radiology Interpretation Free Text/Narrative:: X-ray 2 view of the abdomen per radiology shows moderate colonic stool volume. Correlation for constipation. - Re-Assessments/Exams Free Text/Narrative Re-Assessment/Exam: 05/11/21 10:21 IV established. Labs drawn. LR 1 liter wide open. Zofran and benadryl for nausea and vomiting. 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 Other than a quite elevated blood sugar in the mid 300s. She has not been taking her medication. There is no sign of DKA. She felt much better after the above therapy. Her discomfort in her abdomen nausea and vomiting is resolved. She clearly is a little dehydrated with her hemoglobin of 16. She received 2 L of fluid in the emergency department. She was also given a dose of MiraLAX for the constipation. We will discharge her home with nausea medication as well as treatment for constipation. Return the emergency department new or worsening symptoms. Discharge instructions as below are explained to the patient she was comfortable with this plan and her questions are answered. 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 Miralax first dose given in the ED. 1 capful in a large glass of water until easy smooth bowel movements. Increase by 1 capful every 2 days until easy smooth bowel movement. i.e. Day 2 2 capful, day 4 3 capfuls etc. Zofran 1 tablet every 6 hrs as needed for nausea. I did refill your Glucovance as well. Start taking this. Return to the ED if new or worsening symptoms. Follow up with PCP in 1 week for recheck and refills of your chronic medications. Sepsis Event Note (ED) - Focused Exam Vital Signs: Vital Signs Temp Pulse Resp BP Pulse Ox 05/11/21 09:25 98.2 F 94 18 130/106 H 98 - My Orders Last 24 Hours: My Active Orders 05/11/21 09:40 Peripheral IV Insertion Adult [OM.PC] Stat 05/11/21 09:48 B-HYDROXYBUTYRATE [REF] Stat - Assessment/Plan Last 24 Hours: My Active Orders 05/11/21 09:40 Peripheral IV Insertion Adult [OM.PC] Stat 05/11/21 09:48 B-HYDROXYBUTYRATE [REF] Stat
[2021-05-11 10:17] LABS: ANION GAP 18.1 mmol/L (5-15); CHLORIDE,CL 99 mmol/L (98-107); SODIUM,NA 136 mmol/L (136-145)
--- NOTE | 2021-05-11 11:00 | CR ---
[id number] RAD/RAD Abd Flat and Upright 2V EXAM: RAD Abd Flat and Upright 2V INDICATION: BLOATING, NAUSEA, VOMITING X3 WEEKS. LEFT SIDED ABDOMEN COMPARISON: 2017. Discussion/Impression: Unobstructed bowel gas pattern. No radiographically evident pneumoperitoneum. Cholecystectomy clips in the right upper quadrant. Moderate colonic stool volume. Correlate for constipation. Ariel Rudolph MD 05/11/21 1059 Thank you for allowing us to participate in the care of your patient.
[2021-05-11] MEDS ORDERED: Polyethylene Glycol 3350 Powder 17 GM Packet PO ONE (11:05)
== END 2021-05-11 12:01 | disposition home or self-care (01) ==
LOC: VM.ED 09:22
DX: K59.09 Other constipation (principal); E11.65 Type 2 diabetes mellitus with hyperglycemia; I10 Essential (primary) hypertension; E78.00 Pure hypercholesterolemia, unspecified; Z91.018 Allergy to other foods; Z86.16 Personal history of COVID-19; Z88.5 Allergy status to narcotic agent; Z88.0 Allergy status to penicillin; Z79.899 Other long term (current) drug therapy
CPT/HCPCS: 36415; 74019; 80053; 81001; 81025; 82010; 82803; 83605; 83690; 85025; 86140; 96374; 96375; 99284; 99284-25; A9270-GY; J1200; J2405; J7120

== ENCOUNTER 2021-11-28 08:17 | Emergency (ER) | payer BC, MEDICAID ==
[2021-11-28 08:36] VITALS: BP 132/89; PULSE 88
[2021-11-28] MEDS ORDERED: Orphenadrine 60 MG/2 ML Inj IM STA (08:55)
[2021-11-28] MEDS ORDERED: Ketorolac 30 MG/ML SDV IM ONE (08:55)
[2021-11-28] MEDS ORDERED: Aspirin 81 MG Tab.Chew PO ONE (09:08)
[2021-11-28 09:26] LABS: ANION GAP 18.6 mmol/L (5-15); CHLORIDE,CL 99 mmol/L (98-107); SODIUM,NA 135 mmol/L (136-145)
== END 2021-11-28 09:55 | disposition home or self-care (01) ==
LOC: VM.ED 08:17
DX: R07.89 Other chest pain (principal); E11.65 Type 2 diabetes mellitus with hyperglycemia; R80.9 Proteinuria, unspecified; I10 Essential (primary) hypertension; F41.9 Anxiety disorder, unspecified; F32.A Depression, unspecified; Z79.84 Long term (current) use of oral hypoglycemic drugs; Z79.899 Other long term (current) drug therapy; Z88.0 Allergy status to penicillin; Z88.5 Allergy status to narcotic agent; Z91.018 Allergy to other foods
CPT/HCPCS: 36415; 71046; 80053; 81001; 84484; 85025; 93005; 96372; 99284; 99285-25; A9270-GY; J1885; J2360

== ENCOUNTER 2022-10-12 03:55 | Emergency (ER) | payer BC ==
[2022-10-12 05:21] VITALS: BP 118/85; PULSE 108
== END 2022-10-12 05:25 | disposition home or self-care (01) ==
LOC: VM.ED 03:55
DX: T74.11XA Adult physical abuse, confirmed, initial encounter (principal); S00.03XA Contusion of scalp, initial encounter; E78.00 Pure hypercholesterolemia, unspecified; I10 Essential (primary) hypertension; E11.9 Type 2 diabetes mellitus without complications; Z88.5 Allergy status to narcotic agent; Z88.0 Allergy status to penicillin; Z88.8 Allergy status to other drugs, medicaments and biological substances; Z79.899 Other long term (current) drug therapy; Z90.49 Acquired absence of other specified parts of digestive tract; Z90.710 Acquired absence of both cervix and uterus; Z86.16 Personal history of COVID-19
CPT/HCPCS: 99283; 99284

== ENCOUNTER 2022-12-29 17:35 | Emergency (ER) | payer SELFPAY ==
[2022-12-29] MEDS: Take Home: Acetaminophen/HYDROcodone 325-10 MG, 5 Tab Pack PO ONE (18:01)
[2022-12-29] MEDS: Take Home: Amoxicillin/Clavulanate K 875-125 MG Tab, 2 Tab Pack PO ONE (18:01)
[2022-12-31 11:13] VITALS: BP 135/93; PULSE 105
== END 2022-12-29 18:05 | disposition home or self-care (01) ==
LOC: VM.ED 17:35
DX: K08.89 Other specified disorders of teeth and supporting structures (principal); E78.00 Pure hypercholesterolemia, unspecified; I10 Essential (primary) hypertension; E11.9 Type 2 diabetes mellitus without complications; Z88.5 Allergy status to narcotic agent; Z91.018 Allergy to other foods; Z79.899 Other long term (current) drug therapy; Z86.16 Personal history of COVID-19
CPT/HCPCS: 99282; 99283; A9270-GY

== ENCOUNTER 2023-06-30 08:21 | Emergency (ER) | payer SELFPAY ==
[2023-06-30 08:27] VITALS: BP 137/94; PULSE 100
[2023-06-30] MEDS ORDERED: cefTRIAXone 1 GM, Lidocaine 1% 2.1 ML IM ONE ×2 (08:30)
== END 2023-06-30 08:58 | disposition home or self-care (01) ==
LOC: VM.ED 08:21
DX: L03.311 Cellulitis of abdominal wall (principal); E11.9 Type 2 diabetes mellitus without complications; I10 Essential (primary) hypertension; Z88.5 Allergy status to narcotic agent; Z91.018 Allergy to other foods; Z79.899 Other long term (current) drug therapy
CPT/HCPCS: 96372; 99283; J0696; J3490

== ENCOUNTER 2023-09-08 13:06 | Emergency (ER) | payer SELFPAY ==
[2023-09-08] MEDS ORDERED: Ketorolac 30 MG/ML SDV IM ONE (13:25)
[2023-09-08] MEDS ORDERED: cefTRIAXone 1 GM Vial IM ONE (13:25)
[2023-09-08] MEDS ORDERED: Lidocaine 1% 10 ML MDV ONE (13:33)
[2023-09-08] MEDS ORDERED: Take Home: Sulfamethoxazole/Trimethoprim 800-160 MG Tab, 6 Tab Pack PO ONE (14:02)
[2023-09-08 18:05] VITALS: BP 144/92; PULSE 110
== END 2023-09-08 14:23 | disposition home or self-care (01) ==
LOC: SUPCPDRO 13:06 → VM.ED 13:06
DX: L03.311 Cellulitis of abdominal wall (principal); I10 Essential (primary) hypertension; E78.00 Pure hypercholesterolemia, unspecified; E11.9 Type 2 diabetes mellitus without complications; Z86.16 Personal history of COVID-19; Z91.018 Allergy to other foods; Z88.8 Allergy status to other drugs, medicaments and biological substances; Z79.899 Other long term (current) drug therapy; Z90.49 Acquired absence of other specified parts of digestive tract; Z90.710 Acquired absence of both cervix and uterus; F17.200 Nicotine dependence, unspecified, uncomplicated
CPT/HCPCS: 96372; 99283; A9270; J0696; J1885; J3490

== ENCOUNTER 2024-02-11 09:25 | Emergency (ER) | payer MEDICAID ==
[2024-02-11 09:35] VITALS: BP 130/108; PULSE 92
[2024-02-11] MEDS: cefTRIAXone 1 GM, Lidocaine 1% 2.1 ML IM ONE (09:52)
== END 2024-02-11 10:08 | disposition home or self-care (01) ==
LOC: VM.ED 09:25
DX: K04.7 Periapical abscess without sinus (principal); E11.9 Type 2 diabetes mellitus without complications; Z88.5 Allergy status to narcotic agent; Z91.018 Allergy to other foods; Z88.8 Allergy status to other drugs, medicaments and biological substances; Z79.51 Long term (current) use of inhaled steroids; Z90.49 Acquired absence of other specified parts of digestive tract; Z90.710 Acquired absence of both cervix and uterus; Z86.16 Personal history of COVID-19
CPT/HCPCS: 96372; 99283; J0696; J3490

== ENCOUNTER 2025-02-12 13:25 | Emergency (ER) | payer MEDICAID ==
[2025-02-12 15:01] VITALS: BP 115/72; PULSE 89
== END 2025-02-12 14:21 | disposition home or self-care (01) ==
LOC: VM.ED 13:25
DX: S50.01XA Contusion of right elbow, initial encounter (principal); I10 Essential (primary) hypertension; E78.00 Pure hypercholesterolemia, unspecified; E11.9 Type 2 diabetes mellitus without complications; Z88.8 Allergy status to other drugs, medicaments and biological substances; Z91.018 Allergy to other foods; Z79.899 Other long term (current) drug therapy; Z90.49 Acquired absence of other specified parts of digestive tract; Z90.710 Acquired absence of both cervix and uterus; W22.8XXA Striking against or struck by other objects, initial encounter
CPT/HCPCS: 73080-RT; 99283

== ENCOUNTER 2025-06-14 06:57 | Emergency (ER) | payer MEDICAID ==
[2025-06-14] MEDS ORDERED: Sodium Chloride 0.9% 10 ML Syringe FLUSH PRN (07:22)
[2025-06-14 07:32] LABS: BASOPHILS ABSOLUTE AUTO 0.0 x10^3/uL (0.0-0.2); BASOPHILS PERCENT AUTO 0.2 % (0.2-1.2); EOSINOPHILS ABSOLUTE AUTO 0.2 x10^3/uL (0.0-0.5); EOSINOPHILS PERCENT AUTO 1.4 % (0.0-4.0); IMMATURE GRAN ABSOLUTE AUTO 0.06 x10^3/uL (0.00-0.07); IMMATURE GRAN PERCENT AUTO 0.50 % (0.00-0.43); LYMPHOCYTES ABSOLUTE AUTO 3.0 x10^3/uL (1.0-4.8); LYMPHOCYTES PERCENT AUTO 27.4 % (25.0-50.0); MONOCYTES ABSOLUTE AUTO 0.8 x10^3/uL (0.0-0.8); MONOCYTES PERCENT AUTO 7.0 % (2.0-11.0); NEUTROPHILS ABSOLUTE AUTO 7.1 x10^3/uL (1.8-7.7); NEUTROPHILS PERCENT AUTO 63.5 % (50.0-80.0); PLATELET COUNT,PLT 306 x10^3/uL (130-400); RED BLOOD CELL COUNT 4.81 x10^6/uL (4.00-5.50); WHITE BLOOD CELL COUNT,WBC 11.1 x10^3/uL (4.0-10.0)
[2025-06-14] MEDS: Ondansetron 4 MG/2 ML SDV IVPUSH ONE (07:40)
[2025-06-14 07:52] LABS: A/G RATIO 0.80; ALANINE AMINOTRANSFERASE,ALT 21 U/L (14-59); ASPARTATE AMNIOTRANSFERASE,AST 14 U/L (15-37); BILIRUBIN TOTAL 0.9 mg/dL (0.2-1.0); BLOOD UREA NITROGEN,BUN 21 mg/dL (7-18); CARBON DIOXIDE,CO2 27 mmol/L (21-32); CHLORIDE,CL 98 mmol/L (98-107); CREATININE 1.0 mg/dL (0.55-1.02); GLUCOSE RANDOM 266 mg/dL (70-99); POTASSIUM,K 4.5 mmol/L (3.5-5.1); PROTEIN TOTAL,TP 8.3 g/dL (6.4-8.2); SODIUM,NA 131 mmol/L (136-145)
[2025-06-14 07:55] LABS: ESTIMATED GFR 73 mL/min (>=60)
[2025-06-14 08:09] VITALS: BP 130/85; PULSE 96
[2025-06-14] MEDS: Iopamidol 612 MG/ML 100 ML Bottle IVPUSH ONE (08:34)
== END 2025-06-14 09:20 | disposition home or self-care (01) ==
LOC: VM.ED 06:57
DX: R10.30 Lower abdominal pain, unspecified (principal); I10 Essential (primary) hypertension; E11.9 Type 2 diabetes mellitus without complications; Z91.018 Allergy to other foods; Z88.8 Allergy status to other drugs, medicaments and biological substances; Z79.899 Other long term (current) drug therapy; Z86.16 Personal history of COVID-19; Z90.49 Acquired absence of other specified parts of digestive tract; Z90.710 Acquired absence of both cervix and uterus
CPT/HCPCS: 36415; 74177; 80053; 83690; 85025; 96361; 96374; 96375; 99284; 99284-25; J1171; J2405; J7030; Q9967

== ENCOUNTER 2025-06-27 11:10 | Emergency (ER) | payer MEDICAID ==
[2025-06-27 11:25] VITALS: PULSE 82
[2025-06-27 11:46] LABS: BASOPHILS ABSOLUTE AUTO 0.0 x10^3/uL (0.0-0.2); BASOPHILS PERCENT AUTO 0.2 % (0.2-1.2); EOSINOPHILS ABSOLUTE AUTO 0.1 x10^3/uL (0.0-0.5); EOSINOPHILS PERCENT AUTO 1.4 % (0.0-4.0); IMMATURE GRAN ABSOLUTE AUTO 0.03 x10^3/uL (0.00-0.07); IMMATURE GRAN PERCENT AUTO 0.40 % (0.00-0.43); LYMPHOCYTES ABSOLUTE AUTO 2.9 x10^3/uL (1.0-4.8); LYMPHOCYTES PERCENT AUTO 33.9 % (25.0-50.0); MONOCYTES ABSOLUTE AUTO 0.5 x10^3/uL (0.0-0.8); MONOCYTES PERCENT AUTO 5.8 % (2.0-11.0); NEUTROPHILS ABSOLUTE AUTO 5.0 x10^3/uL (1.8-7.7); NEUTROPHILS PERCENT AUTO 58.3 % (50.0-80.0); PLATELET COUNT,PLT 306 x10^3/uL (130-400); RED BLOOD CELL COUNT 4.63 x10^6/uL (4.00-5.50); WHITE BLOOD CELL COUNT,WBC 8.5 x10^3/uL (4.0-10.0)
[2025-06-27 12:06] LABS: A/G RATIO 0.76; ALANINE AMINOTRANSFERASE,ALT 21 U/L (14-59); ASPARTATE AMNIOTRANSFERASE,AST 16 U/L (15-37); BILIRUBIN TOTAL 0.7 mg/dL (0.2-1.0); BLOOD UREA NITROGEN,BUN 15 mg/dL (7-18); CARBON DIOXIDE,CO2 28 mmol/L (21-32); CHLORIDE,CL 103 mmol/L (98-107); CREATININE 0.8 mg/dL (0.55-1.02); GLUCOSE RANDOM 207 mg/dL (70-99); POTASSIUM,K 5.1 mmol/L (3.5-5.1); PROTEIN TOTAL,TP 8.1 g/dL (6.4-8.2); SODIUM,NA 134 mmol/L (136-145)
[2025-06-27 12:07] LABS: ESTIMATED GFR 95 mL/min (>=60)
[2025-06-27 12:08] LABS: INR 0.9 (0.9-1.1); PTT,PARTIAL THROMBOPLSTIN TIME 23.7 SEC (24.3-33.4)
[2025-06-27 12:29] VITALS: BP 152/96
== END 2025-06-27 12:55 | disposition home or self-care (01) ==
LOC: VM.ED 11:10
DX: S06.0XAA Concussion with loss of consciousness status unknown, initial encounter (principal); I10 Essential (primary) hypertension; E11.9 Type 2 diabetes mellitus without complications; Z79.899 Other long term (current) drug therapy; Z88.0 Allergy status to penicillin; Z88.5 Allergy status to narcotic agent; Z88.8 Allergy status to other drugs, medicaments and biological substances; Z91.018 Allergy to other foods; Z86.16 Personal history of COVID-19; Z90.49 Acquired absence of other specified parts of digestive tract; Z90.710 Acquired absence of both cervix and uterus; W01.198A Fall on same level from slipping, tripping and stumbling with subsequent striking against other object, initial encounter
CPT/HCPCS: 36415; 70450; 80053; 85025; 85610; 85730; 99284; A9270